=== PATIENT | female | born 1960 | race Caucasian/White ===

== ENCOUNTER 2018-03-23 11:07 | Inpatient (IN) | payer OTHER, BC ==
[2018-03-23] MEDS ORDERED: SODIUM CHLORIDE 1,000 ML IV STA ×2 (12:25→15:52)
[2018-03-23] MEDS ORDERED: ACETAMINOPHEN 1000 MG/100 ML VIAL (NON FORMULARY) IVPB ONE (12:27)
[2018-03-23] MEDS ORDERED: ONDANSETRON 4 MG/2 ML VIAL IVPUSH ONE (12:51)
--- NOTE | 2018-03-23 13:09 | PDOC ---
History of Present Illness - General Chief Complaint: Diarrhea Stated Complaint: PAIN, NAUSEA, HEADACHE Time Seen by Provider: 03/23/18 11:49 History Source: Patient Exam Limitations: No Limitations - History of Present Illness Travel History: No Initial Comments: 03/23/18 13:00 57-year-old female with history of HIV presents the emergency room with complaints of diarrhea since Thursday now associated fever, chills and nausea. Patient states no recent travel or recent illness but states her grandson had coxsackie last week. Patient is followed by Dr. Gomez. GI history states history of cholecystectomy. Patient has no urinary complaints, change in appetite, or recent change in medication. Timing/Duration: reports: getting worse Quality: reports: moderate, cramping Abdominal Pain Onset Location: reports: generalized abdomen Pain Radiation: reports: no radiation Activities at Onset: reports: none Aggravating Factors: improves with: None Alleviating Factors: improves with: None Past History - Travel Traveled outside of the country in the last 30 days: No - Past Medical History Allergies/Adverse Reactions: Allergies Allergy/AdvReac Type Severity Reaction Status Date / Time No Known Allergies Allergy Verified 03/23/18 11:12 Home Medications: Ambulatory Orders Atorvastatin Ca [Lipitor] 10 mg PO HS 03/23/18 Fosamprenavir Calcium [Lexiva] 700 mg PO BID 03/23/18 Lamivudine 300 mg PO DAILY 03/23/18 Mirtazapine 15 mg PO HS 03/23/18 Raltegravir [Isentress -] 400 mg PO BID 03/23/18 Ritonavir [Norvir -] 100 mg PO DAILY 03/23/18 Zolpidem Tartrate 10 mg PO HS 03/23/18 COPD: No Hypercholesterolemia: Yes - Surgical History Abdominal Surgery: Yes Cholecystectomy: Yes (1996) - Immunization History Immunization Up to Date: Yes - Suicide/Smoking/Psychosocial Hx Smoking Status: Yes Smoking History: Current every day smoker Years of Tobacco Use: 30 Number of Cigarettes Smoked Daily: 10 Information on smoking cessation initiated: Yes Hx Alcohol Use: No Drug/Substance Use Hx: No Substance Use Type: None Patient Lives Alone: No Review of Systems - Review of Systems Able to Perform ROS?: No Constitutional: Yes: Symptoms Reported, Chills, Fever, Weakness HEENTM: No: Symptoms Reported Respiratory: No: Symptoms reported Cardiac (ROS): No: Symptoms Reported ABD/GI: Yes: Diarrhea, Nausea, Abdominal cramping Integumentary: No: Symptoms Reported Neurological: No: Symptoms reported Endocrine: No: Symptoms Reported Hematologic/Lymphatic: No: Symptoms Reported *Physical Exam - Vital Signs Last Vital Signs Temp Pulse Resp BP Pulse Ox 100.8 F H 101 H 19 143/76 99 03/23/18 11:10 03/23/18 11:10 03/23/18 11:10 03/23/18 11:10 03/23/18 11:10 - Physical Exam General Appearance: Yes: Nourished, Appropriately Dressed. No: Apparent Distress HEENT: positive: Pharynx Normal. negative: Pale Conjunctivae Neck: positive: Supple Respiratory/Chest: positive: Lungs Clear, Normal Breath Sounds. negative: Respiratory Distress, Accessory Muscle Use Cardiovascular: positive: Regular Rhythm, Tachycardia. negative: Murmur Gastrointestinal/Abdominal: positive: Soft, Tenderness (periumbilical, epigastric right upper quadrant, right flank) Extremity: positive: Normal Capillary Refill. negative: Pedal Edema Integumentary: positive: Normal Color, Warm, Moist Neurologic: positive: Motor Strength 5/5 (ambulatory) Heart Score/ECG Review - ECG Intrepretation Rhythm: Regular Rhythm (Rate 94. Left atrial enlargement. No ST elevation or depression.) ED Treatment Course - LABORATORY CBC & Chemistry Diagram: 03/26/18 06:50 03/26/18 06:50 - RADIOLOGY Radiology Studies Ordered: Category Date Time Status ABDOMEN & PELVIS CT WITH CONTR [CT] Stat CT Scan 03/23/18 12:27 Ordered CHEST X-RAY PORTABLE* [RAD] Stat Radiology 03/23/18 12:25 Taken Medical Decision Making - Medical Decision Making 03/23/18 13:06 Patient with HIV presents with fever diarrhea abdominal pain and nausea. Patient exhibited tenderness to the epigastric right upper quadrant and right flank area. Patient has history of cholecystectomy and denies history of pancreatitis colitis or diverticulitis. Patient ordered for septic workup including abdominal CT. Patient also ordered for IV Tylenol 03/23/18 17:09 Laboratory Tests 03/23/18 03/23/18 03/23/18 13:00 13:00 13:00 WBC 4.7 Hgb 13.6 Hct 40.5 Neutrophils % 50.3 D PT with INR 11.80 INR 1.04 PTT (Actin FS) 30.2 VBG pH 7.40 POC VBG pCO2 45.7 POC VBG pO2 26.1 L Mixed VBG HCO3 27.7 H Sodium Potassium Chloride Carbon Dioxide Anion Gap BUN Creatinine Random Glucose Lactic Acid Calcium Magnesium Total Bilirubin AST ALT Alkaline Phosphatase Troponin I Total Protein Albumin Lipase 03/23/18 03/23/18 13:00 13:00 WBC Hgb Hct Neutrophils % PT with INR INR PTT (Actin FS) VBG pH POC VBG pCO2 POC VBG pO2 Mixed VBG HCO3 Sodium 135 L Potassium 4.2 Chloride 101 Carbon Dioxide 30 Anion Gap 4 L BUN 12 Creatinine 0.9 Random Glucose 84 Lactic Acid 0.9 Calcium 8.3 L Magnesium 2.2 Total Bilirubin 0.3 AST 27 ALT 29 Alkaline Phosphatase 98 Troponin I < 0.02 Total Protein 8.0 Albumin 3.9 Lipase 125 Chest x-ray no shows no evidence of pulmonary disease. 03/23/18 17:10 UA collection pending 03/23/18 18:08 *DC/Admit/Observation/Transfer Diagnosis at time of Disposition: Fever - Discharge Dispostion Condition at time of disposition: Stable - Referrals - Patient Instructions - Post Discharge Activity
[2018-03-23 13:23] LABS: BASO % 0.4 % (0-2.0); EOS % 0.1 % (0-4.5); HEMATOCRIT 40.5 % (32.4-45.2); HEMOGLOBIN 13.6 GM/dL (10.7-15.3); LYMPH % 39.5 % (8-40); MCH 30.3 pg (25.7-33.7); MCHC 33.6 g/dl (32.0-36.0); MEAN CELL VOLUME 90.2 fl (80-96); MEAN PLT VOLUME 8.6 fl (7.5-11.1); MONO % 9.7 % (3.8-10.2); NEUT % 50.3 % (42.8-82.8); PLATELET COUNT 112 K/MM3 (134-434); RBC 4.49 M/mm3 (3.60-5.2); RDW 13.5 % (11.6-15.6); WHITE BLOOD COUNT 4.7 K/mm3 (4.0-10.0)
[2018-03-23] MEDS ORDERED: ACETAMINOPHEN INJECTION 100 ML IVPB ONE (13:32)
[2018-03-23] MEDS ORDERED: ONDANSETRON 4 MG/2 ML VIAL ONE ×2 (13:32→23:24)
[2018-03-23 13:39] LABS: VENOUS PC02 45.7 mmHg (38-52); VENOUS PH 7.4 (7.32-7.42); VENOUS PO2 26.1 mmHg (28-48)
[2018-03-23 13:54] LABS: ALBUMIN 3.9 g/dl (3.4-5.0); ANION GAP 4 (8-16); BILIRUBIN,TOTAL 0.3 mg/dL (0.2-1.0); BLOOD UREA NITROGEN 12 mg/dL (7-18); CALCIUM 8.3 mg/dL (8.5-10.1); CHLORIDE 101 mmol/L (98-107); CO2 30 mmol/L (21-32); CREATININE 0.9 mg/dL (0.55-1.02); GLUCOSE,RANDOM 84 mg/dL (74-106); MAGNESIUM 2.2 mg/dL (1.8-2.4); POTASSIUM 4.2 mmol/L (3.5-5.1); SGOT/AST 27 U/L (15-37); SGPT/ALT 29 U/L (12-78); SODIUM 135 mmol/L (136-145)
[2018-03-23 13:55] LABS: ALK PHOS 98 U/L (45-117)
[2018-03-23 14:10] LABS: INR 1.04 (0.83-1.09); PROTHROMBIN TIME (PATIENT) 11.8 SEC (9.7-13.0)
[2018-03-23 14:13] LABS: ACTIVATED PTT 30.2 SECONDS (25.2-36.5)
[2018-03-23] MEDS ORDERED: KETOROLAC TROMETHAMINE 30 MG/1 ML VIAL IVPUSH ONE (15:52)
[2018-03-23 16:59] LABS: LIPASE 125 U/L (73-393)
[2018-03-23] MEDS ORDERED: KETOROLAC TROMETHAMINE 30 MG/1 ML VIAL ONE (16:59)
[2018-03-23 19:42] LABS: PLATELET ESTIMATE SLT DECREASE
[2018-03-23] MEDS ORDERED: CEFTRIAXONE 1,000 MG in DEXTROSE 5%-WATER - 50 ML IVPB ONE (21:00)
--- NOTE | 2018-03-23 21:18 | PDOC ---
*Physical Exam - Vital Signs Last Vital Signs Temp Pulse Resp BP Pulse Ox 100.8 F H 101 H 19 143/76 99 03/23/18 11:10 03/23/18 11:10 03/23/18 11:10 03/23/18 11:10 03/23/18 11:10 ED Treatment Course - LABORATORY CBC & Chemistry Diagram: 03/23/18 13:00 03/23/18 13:00 - ADDITIONAL ORDERS Additional order review: Laboratory Results 03/23/18 03/23/18 03/23/18 13:00 13:00 13:00 PT with INR INR PTT (Actin FS) VBG pH 7.40 POC VBG pCO2 45.7 POC VBG pO2 26.1 L Mixed VBG HCO3 27.7 H Sodium 135 L Potassium 4.2 Chloride 101 Carbon Dioxide 30 Anion Gap 4 L BUN 12 Creatinine 0.9 Creat Clearance w eGFR > 60 Random Glucose 84 Lactic Acid 0.9 Calcium 8.3 L Magnesium 2.2 Total Bilirubin 0.3 AST 27 ALT 29 Alkaline Phosphatase 98 Troponin I < 0.02 Total Protein 8.0 Albumin 3.9 Lipase 125 03/23/18 13:00 PT with INR 11.80 INR 1.04 PTT (Actin FS) 30.2 VBG pH POC VBG pCO2 POC VBG pO2 Mixed VBG HCO3 Sodium Potassium Chloride Carbon Dioxide Anion Gap BUN Creatinine Creat Clearance w eGFR Random Glucose Lactic Acid Calcium Magnesium Total Bilirubin AST ALT Alkaline Phosphatase Troponin I Total Protein Albumin Lipase 03/23/18 13:00 RBC 4.49 MCV 90.2 MCHC 33.6 RDW 13.5 MPV 8.6 Neutrophils % 50.3 D Lymphocytes % 39.5 D Monocytes % 9.7 Eosinophils % 0.1 D Basophils % 0.4 D - RADIOLOGY Radiology Studies Ordered: Category Date Time Status CHEST PA & LAT [RAD] Stat Radiology 03/23/18 21:01 Ordered - Medications Given in the ED: ED Medications Discontinued Medications Generic Name Dose Route Start Last Admin Trade Name Freq PRN Reason Stop Dose Admin Acetaminophen 1,000 mg 03/23/18 12:27 03/23/18 13:34 Ofirmev Injection - IVPB 03/23/18 12:28 1,000 mg ONCE ONE Administration Sodium Chloride 1,000 mls @ 1,000 mls/hr 03/23/18 12:25 03/23/18 13:34 Normal Saline - IV 03/23/18 13:24 1,000 mls/hr ASDIR STA Administration Sodium Chloride 1,000 mls @ 1,000 mls/hr 03/23/18 15:52 03/23/18 16:40 Normal Saline - IV 03/23/18 16:51 1,000 mls/hr ASDIR STA Administration Ketorolac Tromethamine 30 mg 03/23/18 15:52 03/23/18 16:57 Toradol Injection - IVPUSH 03/23/18 15:53 30 mg ONCE ONE Administration Ondansetron HCl 4 mg 03/23/18 12:51 03/23/18 13:35 Zofran Injection IVPUSH 03/23/18 12:52 4 mg ONCE ONE Administration *DC/Admit/Observation/Transfer Diagnosis at time of Disposition: Fever Qualifiers: Fever type: unspecified Qualified Code(s): R50.9 - Fever, unspecified - Discharge Dispostion Condition at time of disposition: Stable Decision to Admit order: Yes - Referrals Referrals: Nabil Gomez MD [Primary Care Provider] - - Patient Instructions - Post Discharge Activity
[2018-03-23] MEDS ORDERED: CEFTRIAXONE 1 GM/50 ML BAG ONE (21:55)
--- NOTE | 2018-03-23 22:29 | HP ---
CHIEF COMPLAINT: diarrhea, fever, chills, nausea PCP: HISTORY OF PRESENT ILLNESS: 57 yo female with PMH HIV (On ART, CDC 760's in January per pt), MANDO presents to the ED with complaints of diarrhea for 5 days that has been accompanied by subjective fevers and chills with intermittent abdominal pain and sweating. Her last episode of diarrhea was yesterday, and she states she was having diarrhea after eating, which she says was 2-3 times a day. Describes the stool as loose and watery and says that it had an orange-zach tint to it. Denies any bloody or dark stool. Pt also states that she requires 10mg Ambien per night at home for sleep as she has a history of poor sleep. ER course was notable for: (1) Febrile 100.8, HR 101, Lactic acid 0.9, WBC 4.7 (2) 2L NS, 1 gm rocephin, 30 mg Toradol, zofran (3) CT abdomen with no acute colitis, splenomegaly and R middle lobe nodule noted Recent Travel: none PAST MEDICAL HISTORY: HIV (CD4 760s in January) HLD PAST SURGICAL HISTORY: Cholecystectomy 1996 Social History: Smokin/2 ppd for 30 years Alcohol: none Drugs: none Family History: Allergies No Known Allergies Allergy (Verified 03/23/18 11:12) HOME MEDICATIONS: Home Medications Medication Instructions Recorded Atorvastatin Ca [Lipitor] 10 mg PO HS 03/23/18 Fosamprenavir Calcium [Lexiva] 700 mg PO BID 03/23/18 Lamivudine 300 mg PO DAILY 03/23/18 Mirtazapine 15 mg PO HS 03/23/18 Raltegravir [Isentress -] 400 mg PO BID 03/23/18 Ritonavir [Norvir -] 100 mg PO DAILY 03/23/18 Zolpidem Tartrate 10 mg PO HS 03/23/18 REVIEW OF SYSTEMS CONSTITUTIONAL: fever, chills, diaphoresis, Absent: generalized weakness, malaise, loss of appetite, weight change HEENT: Absent: rhinorrhea, nasal congestion, throat pain, throat swelling, difficulty swallowing, mouth swelling, ear pain, eye pain, visual changes CARDIOVASCULAR: Absent: chest pain, syncope, palpitations, irregular heart rate, lightheadedness , peripheral edema RESPIRATORY: Absent: cough, shortness of breath, dyspnea with exertion, orthopnea, wheezing, stridor, hemoptysis GASTROINTESTINAL:abdominal pain, nausea, diarrhea Absent: abdominal distension, vomiting,, constipation, melena, hematochezia GENITOURINARY: Absent: dysuria, frequency, urgency, hesitancy, hematuria, flank pain, genital pain MUSCULOSKELETAL: Absent: myalgia, arthralgia, joint swelling, back pain, neck pain SKIN: Absent: rash, itching, pallor HEMATOLOGIC/IMMUNOLOGIC: Absent: easy bleeding, easy bruising, lymphadenopathy, frequent infections ENDOCRINE: Absent: unexplained weight gain, unexplained weight loss, heat intolerance, cold intolerance NEUROLOGIC: Absent: headache, focal weakness or paresthesias, dizziness, unsteady gait, seizure, mental status changes, bladder or bowel incontinence PSYCHIATRIC: Absent: anxiety, depression, suicidal or homicidal ideation, hallucinations. PHYSICAL EXAMINATION Vital Signs - 24 hr 03/23/18 03/23/18 11:10 18:31 Temperature 100.8 F H 98.8 F Pulse Rate 101 H Pulse Rate [ 85 Left Radial] Respiratory 19 16 Rate Blood Pressure 143/76 Blood Pressure 129/63 [Right Arm] O2 Sat by Pulse 99 100 Oximetry (%) GENERAL: A&O, no acute distress HEAD: Normocephalic, atraumatic. EYES: PERRL, EOMI, no scleral icterus EARS, NOSE, THROAT: oropharynx clear without exudates. Moist mucous membranes. NECK: supple without lymphadenopathy LUNGS: CTA b/l, no crackles or wheezes HEART: Regular rate and rhythm, normal S1 and S2 without murmur, rub or gallop. ABDOMEN: Soft, nontender to palpation, hyperactive bowel sounds MUSCULOSKELETAL: No bony deformities or tenderness. No CVA tenderness. UPPER EXTREMITIES: warm, well-perfused. No cyanosis. No clubbing. No peripheral edema. LOWER EXTREMITIES: warm, well-perfused. No calf tenderness. No peripheral edema. NEUROLOGICAL: Cranial nerves II-XII grossly intact. Normal speech. Normal gait observed PSYCHIATRIC: Cooperative. Good eye contact. Appropriate mood and affect. SKIN: Warm, dry, normal turgor, no rashes or lesions noted Laboratory Results - last 24 hr 03/23/18 03/23/18 03/23/18 13:00 13:00 13:00 WBC 4.7 RBC 4.49 Hgb 13.6 Hct 40.5 MCV 90.2 MCH 30.3 MCHC 33.6 RDW 13.5 Plt Count 112 L D MPV 8.6 Absolute Neuts (auto) 2.4 Neutrophils % 50.3 D Lymphocytes % 39.5 D Monocytes % 9.7 Eosinophils % 0.1 D Basophils % 0.4 D Nucleated RBC % 0 Platelet Estimate Slt decrease PT with INR 11.80 INR 1.04 PTT (Actin FS) 30.2 VBG pH 7.40 POC VBG pCO2 45.7 POC VBG pO2 26.1 L Mixed VBG HCO3 27.7 H Sodium Potassium Chloride Carbon Dioxide Anion Gap BUN Creatinine Creat Clearance w eGFR Random Glucose Lactic Acid Calcium Magnesium Total Bilirubin AST ALT Alkaline Phosphatase Troponin I Total Protein Albumin Lipase 03/23/18 03/23/18 13:00 13:00 WBC RBC Hgb Hct MCV MCH MCHC RDW Plt Count MPV Absolute Neuts (auto) Neutrophils % Lymphocytes % Monocytes % Eosinophils % Basophils % Nucleated RBC % Platelet Estimate PT with INR INR PTT (Actin FS) VBG pH POC VBG pCO2 POC VBG pO2 Mixed VBG HCO3 Sodium 135 L Potassium 4.2 Chloride 101 Carbon Dioxide 30 Anion Gap 4 L BUN 12 Creatinine 0.9 Creat Clearance w eGFR > 60 Random Glucose 84 Lactic Acid 0.9 Calcium 8.3 L Magnesium 2.2 Total Bilirubin 0.3 AST 27 ALT 29 Alkaline Phosphatase 98 Troponin I < 0.02 Total Protein 8.0 Albumin 3.9 Lipase 125 ASSESSMENT/PLAN: 57 yo female with PMH HIV (On ART, CDC 760's in January per pt), HLD placed into observation for gastroenteritis likely viral, ID consult in AM Gastroenteritis -Likely viral gastroenteritis, diarrhea resolving at this point -Unlikely opportunistic due to recent CD4 levels -ED provider discussed with ID who recommended keeping her one night and he will consult in AM -1 gm Rocephin given per ID recommendation -2L NS given in ED, will continue fluid resuscitation HIV -Dx 12 years ago -Follows regularly with Dr. Gomez in clinic -CD4 760's in January -Last therapy change 6 years ago, Continue current regimen -Lexiva, Isentress, Norvir -CD4 and viral load ordered Pulmonary Nodule -nodule noted on CT -Pulm consulted for follow up HLD -Lipitor 20 mg HS Sleep Disorder -will restart home dose Ambien 10 mg PRN for now DVT Prophylaxis -Early ambulation FEN -Fluids: NS @ 100 cc/hr -Electrolytes: no abnormalities, BMP in AM -Nutrition: regular diet Disposition Observation Visit type - Emergency Visit Emergency Visit: Yes ED Registration Date: 03/23/18 Care time: The patient presented to the Emergency Department on the above date and was hospitalized for further evaluation of their emergent condition. - New Patient This patient is new to me today: Yes Date on this admission: 03/24/18 - Critical Care Critical Care patient: No Hospitalist Screening - Colonoscopy Questionnaire Colonoscopy Questionnaire: Colonoscopy Questionnaire - Patient: 50 - 75 years old and never had a screening colonoscopy: Unknown History of colon or rectal polyps, or CA: No History of IBD, Crohn's disease or UC: No History of abdominal radiation therapy as a child: No - Relative: 1 with colon or rectal CA, or polyps at age 60 or younger: No Colon or rectal CA diagnosed at age 45 or younger: No Multiple relatives with colon or rectal CA: No - Outcome: Screening Result: Negative Screen
[2018-03-23] MEDS ORDERED: ZOLPIDEM TARTRATE 5 MG TABLET ONE (23:23)
[2018-03-23] MEDS: ONDANSETRON 4 MG/2 ML VIAL IVPUSH PRN (23:29)
[2018-03-23] MEDS: ZOLPIDEM TARTRATE 5 MG TABLET PO PRN (23:29)
[2018-03-23] MEDS: SODIUM CHLORIDE 1,000 ML IV SCH (23:29)
[2018-03-24 00:48] LABS: URINE APPEARANCE CLEAR; URINE BILIRUBIN NEGATIVE (<2.0 mg/dL); URINE COLOR LTYELLOW; URINE GLUCOSE (UA) NEGATIVE (NEGATIVE); URINE KETONE NEGATIVE (NEGATIVE); URINE LEUK ESTERASE TRACE (NEGATIVE); URINE NITRITE NEGATIVE (NEGATIVE); URINE PROTEIN NEGATIVE (NEGATIVE); URINE UROBILINOGEN NEGATIVE mg/dL (0.2-1.0)
[2018-03-24] MEDS: ACETAMINOPHEN 325 MG TABLET (FP) PO PRN ×4 (01:41→20:14)
[2018-03-24 01:48] LABS: EPI CELLS FEW /HPF (FEW); URINE BACTERIA RARE /hpf (NONE SEEN); URINE MUCUS RARE
[2018-03-24 02:05] VITALS: BMI 30.2
--- NOTE | 2018-03-24 04:58 | PN ---
Teaching Attending Note Name of Resident: Freddy Christensen ATTENDING PHYSICIAN STATEMENT I saw and evaluated the patient. Chart, data, imaging reviewed. I reviewed the resident's note and discussed the case with the resident. I agree with the resident's findings and plan as documented. SUBJECTIVE: 57 yo female with PMH HIV (On ART, CDC 700's and undetected VL in January per pt) c /o diarrhea, nausea, fevers since 03/19. Last BM was 2 days ago. Pt mentioned that grandson had coxsackie virus infection and she had close contact. Patient came to ER as per advice from Dr. Gomez. OBJECTIVE: Last Vital Signs Temp Pulse Resp BP Pulse Ox 99.0 F 91 H 20 154/75 100 03/24/18 05:28 03/24/18 01:59 03/24/18 01:59 03/24/18 01:59 03/24/18 01:27 General - nad, aaox3 heent- at, no thrush cv-s1+S2+rrr chest- clear abdomen- soft, bs+ skin -no rashes seen Abnormal Lab Results 03/23/18 03/23/18 03/23/18 13:00 13:00 13:00 Plt Count 112 L D POC VBG pO2 26.1 L Mixed VBG HCO3 27.7 H Sodium 135 L Anion Gap 4 L Calcium 8.3 L Urine Blood 03/23/18 23:59 Plt Count POC VBG pO2 Mixed VBG HCO3 Sodium Anion Gap Calcium Urine Blood 1+ H CT of abd/pelvis reviewed -right middle lobe 9mm nodule, splenomegally CXR- wnl ASSESSMENT AND PLAN: 57yo woman with likely viral gastroenteritis possibly from her grandson. 9mm right pleural based nodule in a long time smoker warrants further investigations as patient is high risk for malignancies. -observation -IV fluid hydration -zofran prn for nausea -BRAT diet -pulmonary evaluation for possible biopsy of long nodule -c/w ART medications for HIV -CD4, viral load -smoking cessation -heparin sc for dvt ppx
[2018-03-24 08:44] LABS: BASO % 0.3 % (0-2.0); EOS % 1.1 % (0-4.5); HEMATOCRIT 34.2 % (32.4-45.2); HEMOGLOBIN 11.7 GM/dL (10.7-15.3); LYMPH % 48.4 % (8-40); MCH 30.6 pg (25.7-33.7); MCHC 34.1 g/dl (32.0-36.0); MEAN CELL VOLUME 89.8 fl (80-96); MEAN PLT VOLUME 8.6 fl (7.5-11.1); MONO % 9.7 % (3.8-10.2); NEUT % 40.5 % (42.8-82.8); PLATELET COUNT 80 K/MM3 (134-434); RBC 3.81 M/mm3 (3.60-5.2); RDW 13.2 % (11.6-15.6); WHITE BLOOD COUNT 3.8 K/mm3 (4.0-10.0)
[2018-03-24 08:54] LABS: ALBUMIN 3.1 g/dl (3.4-5.0); BLOOD UREA NITROGEN 9 mg/dL (7-18); CALCIUM 7.5 mg/dL (8.5-10.1); CO2 26 mmol/L (21-32); GLUCOSE,RANDOM 89 mg/dL (74-106); MAGNESIUM 1.9 mg/dL (1.8-2.4)
[2018-03-24 08:57] LABS: ALK PHOS 74 U/L (45-117); BILIRUBIN,TOTAL 0.3 mg/dL (0.2-1.0); CREATININE 0.7 mg/dL (0.55-1.02); SGOT/AST 24 U/L (15-37); SGPT/ALT 21 U/L (12-78); TOT PROT 6.3 g/dl (6.4-8.2)
[2018-03-24 09:16] LABS: ANION GAP 6 (8-16); CHLORIDE 104 mmol/L (98-107); SODIUM 136 mmol/L (136-145)
--- NOTE | 2018-03-24 10:30 | CON.PULM ---
Consult Consult Specialty:: PULM/CCM Referred by:: Hospitalist Reason for Consultation:: lung nodule - History of Present Illness Chief Complaint: Abdominal pain History of Present Illness: 57 F, HIV (On WOO, CDC 760's in January per pt), HLD, active smoker (reports that she has been tapering done and almost at the point that she wants to stop). Admitted via the ER due to diarrhea and abdominal discomfort for 5 days. Associated symptoms of fevers and chills. Called for an 8.8 cm RUL pleural based nodule noted in the RML. Patient had CT imaging in 2005 that revealed multiple non-calcified subcentimeter nodules. Noted on that scan is a 7.2 mm nodule in the same location. The nodule was 6.[address] in 2007. No hemoptysis or unexplained weight loss. - History Source History Provided By: Patient Limitations to Obtaining History: No Limitations - Past Medical History Pulmonary: Yes: Bronchitis, Pneumonia. No: O2 Dependent, Previously Intubated, Pulmonary Embolus, Sleep Apnea - Alcohol/Substance Use Hx Alcohol Use: No - Smoking History Smoking history: Current every day smoker Aproximately how many cigarettes per day: 10 Home Medications - Allergies Allergies/Adverse Reactions: Allergies Allergy/AdvReac Type Severity Reaction Status Date / Time No Known Allergies Allergy Verified 03/23/18 11:12 - Home Medications Home Medications: Ambulatory Orders Atorvastatin Ca [Lipitor] 10 mg PO HS 03/23/18 Fosamprenavir Calcium [Lexiva] 700 mg PO BID 03/23/18 Lamivudine 300 mg PO DAILY 03/23/18 Mirtazapine 15 mg PO HS 03/23/18 Raltegravir [Isentress -] 400 mg PO BID 03/23/18 Ritonavir [Norvir -] 100 mg PO DAILY 03/23/18 Zolpidem Tartrate 10 mg PO HS 03/23/18 Review of Systems - Review of Systems Constitutional: reports: Chills, Fever, Weakness. denies: Unintentional Wgt. Loss Eyes: reports: No Symptoms HENT: reports: No Symptoms Neck: reports: No Symptoms Cardiovascular: denies: Chest Pain, Edema, Palpitations, Shortness of Breath Respiratory: reports: Cough, Snoring. denies: Hemoptysis, SOB, SOB on Exertion , Wheezing Gastrointestinal: reports: Abdominal Pain, Diarrhea, Nausea, Rectal Bleeding, Vomiting Blood Genitourinary: reports: No Symptoms Breasts: reports: No Symptoms Reported Musculoskeletal: reports: No Symptoms Integumentary: reports: No Symptoms Neurological: reports: No Symptoms Endocrine: reports: No Symptoms Hematology/Lymphatic: reports: No Symptoms Psychiatric: reports: No Symptoms Physical Exam Vital Sings: Vital Signs Temperature 99.5 F 03/24/18 07:30 Pulse Rate 88 03/24/18 04:00 Respiratory Rate 20 03/24/18 04:00 Blood Pressure 137/76 03/24/18 04:00 O2 Sat by Pulse Oximetry (%) 100 03/24/18 06:17 Constitutional: Yes: No Distress, Obese Eyes: Yes: Conjunctiva Clear, EOM Intact HENT: Yes: Atraumatic, Normocephalic Neck: Yes: Supple, Trachea Midline Cardiovascular: Yes: Regular Rate and Rhythm Respiratory: Yes: Cough, Diminished, Rhonchi. No: Accessory Muscle Use, On Nasal O2, Rales, SOB, SOB on Exertion, Stridor, Tachypnea, Wheezes ...Inspection: Yes: WNL ...Clubbing: No Gastrointestinal: Yes: Normal Bowel Sounds, Soft Renal/: Yes: WNL Musculoskeletal: Yes: WNL Extremities: Yes: WNL Edema: No Peripheral Pulses WNL: Yes Integumentary: Yes: WNL Neurological: Yes: WNL, Alert, Oriented ...Motor Strength: WNL Psychiatric: Yes: WNL, Alert, Oriented Labs: CBC, BMP 03/24/18 07:00 03/24/18 07:00 Imaging - Results Chest X-ray: Report Reviewed, Image Reviewed Cat Scan: Report Reviewed, Image Reviewed Problem List - Problems (1) HIV disease Code(s): B20 - HUMAN IMMUNODEFICIENCY VIRUS [HIV] DISEASE (2) Smoker Code(s): F17.200 - NICOTINE DEPENDENCE, UNSPECIFIED, UNCOMPLICATED (3) Lung nodule, multiple Code(s): R91.8 - OTHER NONSPECIFIC ABNORMAL FINDING OF LUNG FIELD (4) Abdominal pain Code(s): R10.9 - UNSPECIFIED ABDOMINAL PAIN (5) Diarrhea Code(s): R19.7 - DIARRHEA, UNSPECIFIED (6) Fever Code(s): R50.9 - FEVER, UNSPECIFIED Qualifiers: Fever type: unspecified Qualified Code(s): R50.9 - Fever, unspecified Assessment/Plan No smoking was counseled PFTs an outpatient Patient noted to have multiple nodules on CT imaging from 2006. The same lesion is noted in 2006 which measured 7.2. This is most likely pleural scarring. Discussed findings with the patient. Can make further decisions as an outpatient, but conservative management best course given the 12 year relative stability. GI workup ongoing VTE prophylaxis Thank you. Dr Michaels
--- NOTE | 2018-03-24 10:36 | EKG ---
Test Reason : Blood Pressure : / mmHG Vent. Rate : 094 BPM Atrial Rate : 094 BPM P-R Int : 116 ms QRS Dur : 080 ms QT Int : 324 ms P-R-T Axes : 046 031 050 degrees QTc Int : 405 ms NORMAL SINUS RHYTHM POSSIBLE LEFT ATRIAL ENLARGEMENT NONSPECIFIC ST AND T WAVE ABNORMALITY ABNORMAL ECG WHEN COMPARED WITH ECG OF 25-FEB-2011 16:41, VENT. RATE HAS INCREASED BY 32 BPM T WAVE INVERSION NOW EVIDENT IN INFERIOR LEADS T WAVE INVERSION NOW EVIDENT IN LATERAL LEADS Confirmed by RITA SHANNON, RAMIRO ([id number]) on 03/24/2018 10:36:43 AM Referred By: Confirmed By:RAMIRO SALINAS MD
--- NOTE | 2018-03-24 12:00 | PN ---
Progress Note (short form) - Note Progress Note: ID Consult dictated Acute gastroenteritis ? viral syndrome ( fever, leukopenia, thrombocytopenia, lymphocytosis , arthralgias ) HIV/AIDS stable VL undetectable CD4 700 Await c/s Stool studies Continue ceftriaxone
[2018-03-24] MEDS: CEFTRIAXONE 2 GM in DEXTROSE 5%-WATER 100 ML IVPB SCH (12:24)
--- NOTE | 2018-03-24 12:45 | CONS ---
DATE OF CONSULTATION: DATE OF DICTATION: 03/24/2018 HISTORY OF PRESENT ILLNESS: Patient is a 57-year-old female, history of acquired immunodeficiency syndrome, stable on antiretroviral therapy, evaluated for sepsis. The patient was seen in the office 1 week ago at which time she presented for routine followup. She was doing well and had no complaints at that time. On March 19 she began to develop generalized weakness, profound fatigue, subjective fever, chills, body ache and joint pain, especially at the lower extremities. She developed profuse watery nonbloody diarrhea. She presented to the emergency room where she was noted to have a temperature of 100.8. Cultures were obtained. She denies any chest pain, shortness of breath, cough or sputum production. No vomiting. She has had nonbloody bowel movements. She was exposed to an infant with Coxsackievirus. She denies any other ill contacts. No recent travel. No recent antibiotic therapy. PAST MEDICAL HISTORY: Positive for acquired immunodeficiency syndrome. She has an AIDS diagnosis to the fact of having PCP pneumonia years ago and a low T-cell count. She has since been on antiretroviral therapy and has been stable. Her last viral load was undetectable and T-cell count of 700. Past medical history also includes hyperlipidemia. ALLERGIES: No known allergies. MEDICATIONS: Lexiva; Norvir; Isentress; Epivir; Lipitor. PAST SURGICAL HISTORY: Status post cholecystectomy in 1996. SOCIAL HISTORY: Positive for tobacco use. No history of illicit drug use. SYSTEMS REVIEW: Neurologic: No loss of consciousness, seizure activity, focal weakness. Cardiac: Negative chest pain or palpitations. Respiratory: Negative cough or sputum production. Gastrointestinal: As per HPI. Genitourinary: Negative for urinary tract infection. LABORATORY DATA: White count 3.9, 40 neutrophils, 48 lymphocytes, 9 monocytes, hematocrit 34.2, platelet count 112. BUN 9, creatinine 0.7. Urinalysis: White cells 6. Cultures: Pending. Chest X-ray: Negative. PHYSICAL EXAMINATION:General: She is weak appearing, seated in chair. Vital Signs: Temperature 99.5, T-max 100.8, blood pressure 137/76, pulse 88, regular, respirations 20 per minute. HEENT: Sclerae are anicteric. Dry mucous membranes. Cardiac: Heart sounds S1, S2. Lungs: Clear bilaterally. No rhonchi, rales or wheezing. Abdomen: Soft. No tenderness elicited. Extremities: Negative for edema. No rashes noted. IMPRESSION: 1. Probable viral illness. 2. Acute gastroenteritis. 3. Acquired immunodeficiency syndrome, stable. RECOMMENDATIONS: Suspect the patient has an acute viral illness, possible viral gastroenteritis, in light of fever, body ache, leukopenia, leukocytosis, thrombocytopenia. Await culture results. Obtain stool culture and stool ova and parasite. Empiric ceftriaxone for coverage of enteric pathogens. Antiretroviral therapy. Thank you for the kind referral. ORLANDO PINTO M.D. [id number]
--- NOTE | 2018-03-24 14:38 | PN ---
Physical Exam: SUBJECTIVE: Patient is 57 y/o female with a past medical history of HIV and HLD who presents with diarrhea likely to gastroenteritis. She reports she has not had any diarrhea today or yesterday but still has abdominal pain. She reports she feels feverish. No acute events overnight. OBJECTIVE: Vital Signs Period Temp Pulse Resp BP Sys/Lewis Pulse Ox Last 24 Hr 98.8 F-100.4 F 85-95 16-20 129-154/63-76 100-100 GENERAL: The patient is awake, alert, and fully oriented, in no acute distress. LUNGS: rhonchi left lung, no acessory muscle use HEART: Regular rate and rhythm, S1, S2 ABDOMEN: Soft, nontender, nondistended, normoactive bowel sounds EXTREMITIES: 2+ pulses, warm, well-perfused, no edema. PSYCH: Normal mood, normal affect. SKIN: Warm, dry, normal turgor, no rashes or lesions noted Laboratory Results - last 24 hr 03/23/18 03/23/18 03/23/18 13:00 13:00 13:00 WBC RBC Hgb Hct MCV MCH MCHC RDW Plt Count MPV Absolute Neuts (auto) Total Counted Neutrophils % Neutrophils % (Manual) Lymphocytes % Lymphocytes % (Manual) Monocytes % Monocytes % (Manual) Eosinophils % Eosinophils % (Manual) Basophils % Nucleated RBC % Platelet Estimate Slt decrease PT with INR 11.80 INR 1.04 PTT (Actin FS) 30.2 Sodium 135 L Potassium 4.2 Chloride 101 Carbon Dioxide 30 Anion Gap 4 L BUN 12 Creatinine 0.9 Creat Clearance w eGFR > 60 Random Glucose 84 Calcium 8.3 L Phosphorus Magnesium 2.2 Total Bilirubin 0.3 AST 27 ALT 29 Alkaline Phosphatase 98 Troponin I < 0.02 Total Protein 8.0 Albumin 3.9 Lipase 125 Urine Color Urine Appearance Urine pH Ur Specific [place] Urine Protein Urine Glucose (UA) Urine Ketones Urine Blood Urine Nitrite Urine Bilirubin Urine Urobilinogen Ur Leukocyte Esterase Urine WBC (Auto) Urine RBC (Auto) Ur Epithelial Cells Urine Bacteria Urine Mucus 03/23/18 03/24/18 03/24/18 23:59 07:00 07:00 WBC 3.8 L RBC 3.81 Hgb 11.7 Hct 34.2 D MCV 89.8 MCH 30.6 MCHC 34.1 RDW 13.2 Plt Count 80 L D MPV 8.6 Absolute Neuts (auto) 1.5 Total Counted 100 Neutrophils % 40.5 L Neutrophils % (Manual) 47.0 Lymphocytes % 48.4 H D Lymphocytes % (Manual) 44.0 H Monocytes % 9.7 Monocytes % (Manual) 7 Eosinophils % 1.1 D Eosinophils % (Manual) 1.0 Basophils % 0.3 Nucleated RBC % 0 Platelet Estimate PT with INR INR PTT (Actin FS) Sodium 136 Potassium 4.0 Chloride 104 Carbon Dioxide 26 Anion Gap 6 L BUN 9 Creatinine 0.7 Creat Clearance w eGFR > 60 Random Glucose 89 Calcium 7.5 L Phosphorus 4.0 Magnesium 1.9 Total Bilirubin 0.3 AST 24 ALT 21 Alkaline Phosphatase 74 D Troponin I Total Protein 6.3 L Albumin 3.1 L Lipase Urine Color Ltyellow Urine Appearance Clear Urine pH 5.0 Ur Specific [place] 1.033 Urine Protein Negative Urine Glucose (UA) Negative Urine Ketones Negative Urine Blood 1+ H Urine Nitrite Negative Urine Bilirubin Negative Urine Urobilinogen Negative Ur Leukocyte Esterase Trace Urine WBC (Auto) 6 Urine RBC (Auto) 2 Ur Epithelial Cells Few Urine Bacteria Rare Urine Mucus Rare Active Medications Generic Name Dose Route Start Last Admin Trade Name Freq PRN Reason Stop Dose Admin Acetaminophen 650 mg 03/24/18 01:22 03/24/18 14:15 Tylenol - PO 650 mg Q6H PRN Administration PAIN OR FEVER Sodium Chloride 1,000 mls @ 100 mls/hr 03/23/18 22:15 03/23/18 23:29 Normal Saline - IV 100 mls/hr ASDIR KEVIN Administration Ceftriaxone Sodium 2 gm/ 100 mls @ 200 mls/hr 03/24/18 11:45 03/24/18 12:24 Dextrose IVPB 200 mls/hr DAILY KEVIN Administration Protocol Ondansetron HCl 4 mg 03/23/18 22:10 03/23/18 23:29 Zofran Injection IVPUSH 4 mg Q6H PRN Administration NAUSEA Zolpidem Tartrate 10 mg 03/23/18 22:10 03/23/18 23:29 Ambien - PO 10 mg HS PRN Administration INSOMNIA ASSESSMENT/PLAN: Patient is 57 y/o female with a past medical history of HIV and HLD who presents with diarrhea likely to gastroenteritis. #diarrhea 2/2 to possible gastroenteritis - NS @ 100 - Ceftriaxone 2 gm - acetaminophen 650 prn pain - f/u Dr. pastrana; fever, leukopenia, thrombocytopenia - f/u stool cultures #Pulmonary nodule - 8.8 cm RUL pleural based nodule - Pulm consult Dr. Michaels; same lesion in 2005, most likely scarring, conservative management given 12 year stability #HIV - VL undeteactable CD4 700 - Ritonavir - Raltegravir - Lamivudine - Fosamprenavir #HLD - Atorvastatin #Insomnia - Zolpidem 10 mg po hs - mirtazapine 15 mg po hs Dispo: f/u ID Visit type - Emergency Visit Emergency Visit: No - New Patient This patient is new to me today: Yes Date on this admission: 03/24/18 - Critical Care Critical Care patient: No
--- NOTE | 2018-03-24 16:08 | PN ---
Teaching Attending Note Name of Resident: Judit Flowers ATTENDING PHYSICIAN STATEMENT I saw and evaluated the patient. I reviewed the resident's note and discussed the case with the resident. I agree with the resident's findings and plan as documented. SUBJECTIVE: Patient reports diarrhea has improved. She feels like she is having fevers. OBJECTIVE: Vital Signs Period Temp Pulse Resp BP Sys/Lewis Pulse Ox Last 24 Hr 98.8 F-100.4 F 85-95 16-20 129-154/63-76 100-100 HEART: S1S2, RRR LUNGS: Few rhonchi on right ABDOMEN: Soft, non-tender, non-distended, normal BS EXTREMITIES: No edema Laboratory Results - last 24 hr 03/23/18 03/23/18 03/23/18 13:00 13:00 23:59 WBC RBC Hgb Hct MCV MCH MCHC RDW Plt Count MPV Absolute Neuts (auto) Total Counted Neutrophils % Neutrophils % (Manual) Lymphocytes % Lymphocytes % (Manual) Monocytes % Monocytes % (Manual) Eosinophils % Eosinophils % (Manual) Basophils % Nucleated RBC % Platelet Estimate Slt decrease Sodium 135 L Potassium 4.2 Chloride 101 Carbon Dioxide 30 Anion Gap 4 L BUN 12 Creatinine 0.9 Creat Clearance w eGFR > 60 Random Glucose 84 Calcium 8.3 L Phosphorus Magnesium 2.2 Total Bilirubin 0.3 AST 27 ALT 29 Alkaline Phosphatase 98 Troponin I < 0.02 Total Protein 8.0 Albumin 3.9 Lipase 125 Urine Color Ltyellow Urine Appearance Clear Urine pH 5.0 Ur Specific [place] 1.033 Urine Protein Negative Urine Glucose (UA) Negative Urine Ketones Negative Urine Blood 1+ H Urine Nitrite Negative Urine Bilirubin Negative Urine Urobilinogen Negative Ur Leukocyte Esterase Trace Urine WBC (Auto) 6 Urine RBC (Auto) 2 Ur Epithelial Cells Few Urine Bacteria Rare Urine Mucus Rare 03/24/18 03/24/18 07:00 07:00 WBC 3.8 L RBC 3.81 Hgb 11.7 Hct 34.2 D MCV 89.8 MCH 30.6 MCHC 34.1 RDW 13.2 Plt Count 80 L D MPV 8.6 Absolute Neuts (auto) 1.5 Total Counted 100 Neutrophils % 40.5 L Neutrophils % (Manual) 47.0 Lymphocytes % 48.4 H D Lymphocytes % (Manual) 44.0 H Monocytes % 9.7 Monocytes % (Manual) 7 Eosinophils % 1.1 D Eosinophils % (Manual) 1.0 Basophils % 0.3 Nucleated RBC % 0 Platelet Estimate Sodium 136 Potassium 4.0 Chloride 104 Carbon Dioxide 26 Anion Gap 6 L BUN 9 Creatinine 0.7 Creat Clearance w eGFR > 60 Random Glucose 89 Calcium 7.5 L Phosphorus 4.0 Magnesium 1.9 Total Bilirubin 0.3 AST 24 ALT 21 Alkaline Phosphatase 74 D Troponin I Total Protein 6.3 L Albumin 3.1 L Lipase Urine Color Urine Appearance Urine pH Ur Specific [place] Urine Protein Urine Glucose (UA) Urine Ketones Urine Blood Urine Nitrite Urine Bilirubin Urine Urobilinogen Ur Leukocyte Esterase Urine WBC (Auto) Urine RBC (Auto) Ur Epithelial Cells Urine Bacteria Urine Mucus Current Medications Generic Name Dose Route Start Last Admin Trade Name Freq PRN Reason Stop Dose Admin Acetaminophen 650 mg 03/24/18 01:22 03/24/18 14:15 Tylenol - PO 650 mg Q6H PRN Administration PAIN OR FEVER Sodium Chloride 1,000 mls @ 100 mls/hr 03/23/18 22:15 03/23/18 23:29 Normal Saline - IV 100 mls/hr ASDIR KEVIN Administration Ceftriaxone Sodium 2 gm/ 100 mls @ 200 mls/hr 03/24/18 11:45 03/24/18 12:24 Dextrose IVPB 200 mls/hr DAILY KEVIN Administration Protocol Ondansetron HCl 4 mg 03/23/18 22:10 03/23/18 23:29 Zofran Injection IVPUSH 4 mg Q6H PRN Administration NAUSEA Zolpidem Tartrate 10 mg 03/23/18 22:10 03/23/18 23:29 Ambien - PO 10 mg HS PRN Administration INSOMNIA ASSESSMENT AND PLAN: This is a 57 year old woman with a history of HIV, hyperlipidemia who presented to the ED with fever, chills, nausea and diarrhea. 1. Acute gastroenteritis, possible pneumonia, viral syndrome - Continue IV fluid, Rocephin empirically 2. HIV - Recent undetectable viral load, CD4 700 - Continue anti-retroviral therapy 3. Hyperlipidemia 4. RML lung nodule, 9 mm - Pulmonary consult appreciated - Outpatient follow up
[2018-03-24] MEDS: SODIUM CHLORIDE 1,000 ML IV SCH ×2 (17:51→22:00)
[2018-03-25] MEDS: ACETAMINOPHEN 325 MG TABLET (FP) PO PRN ×4 (02:25→21:13)
[2018-03-25] MEDS: SODIUM CHLORIDE 1,000 ML IV SCH ×2 (05:48→15:25)
[2018-03-25] MEDS ORDERED: POLYETHYLENE GLYCOL 3350 119 GM BTL PO ONE (06:38)
[2018-03-25 07:14] LABS: HEMATOCRIT 34.9 % (32.4-45.2); HEMOGLOBIN 11.9 GM/dL (10.7-15.3); MCH 30.4 pg (25.7-33.7); MCHC 34.2 g/dl (32.0-36.0); MEAN CELL VOLUME 88.9 fl (80-96); MEAN PLT VOLUME 8.8 fl (7.5-11.1); PLATELET COUNT 75 K/MM3 (134-434); RBC 3.92 M/mm3 (3.60-5.2); RDW 13.4 % (11.6-15.6); WHITE BLOOD COUNT 3.9 K/mm3 (4.0-10.0)
[2018-03-25 09:36] LABS: CHLORIDE 104 mmol/L (98-107); POTASSIUM 3.9 mmol/L (3.5-5.1); SODIUM 140 mmol/L (136-145)
--- NOTE | 2018-03-25 09:57 | PN ---
Progress Note (short form) - Note Progress Note: Today breathing feels a bit labored. No CP. Slight cough. GI symptoms persist. Intake & Output 03/22/18 03/23/18 03/24/18 03/25/18 23:59 23:59 23:59 23:59 Intake Total 2450 1200 Balance 2450 1200 Weight 180 lb 176 lb 5 oz 179 lb 4 oz Last Vital Signs Temp Pulse Resp BP Pulse Ox 101.0 F H 88 20 145/72 100 03/25/18 06:00 03/25/18 06:00 03/25/18 06:00 03/25/18 06:00 03/24/18 06:17 Active Medications Acetaminophen (Tylenol -) 650 mg PO Q6H PRN PRN Reason: PAIN OR FEVER Last Admin: 03/25/18 05:47 Dose: 650 mg Sodium Chloride (Normal Saline -) 1,000 mls @ 100 mls/hr IV ASDIR KEVIN Last Admin: 03/25/18 05:48 Dose: 100 mls/hr Ceftriaxone Sodium 2 gm/ (Dextrose) 100 mls @ 200 mls/hr IVPB DAILY KEVIN; Protocol Last Admin: 03/24/18 12:24 Dose: 200 mls/hr Ondansetron HCl (Zofran Injection) 4 mg IVPUSH Q6H PRN PRN Reason: NAUSEA Last Admin: 03/23/18 23:29 Dose: 4 mg Zolpidem Tartrate (Ambien -) 10 mg PO HS PRN PRN Reason: INSOMNIA Last Admin: 03/23/18 23:29 Dose: 10 mg Constitutional: Yes: No Distress, Obese Eyes: Yes: Conjunctiva Clear, EOM Intact HENT: Yes: Atraumatic, Normocephalic Neck: Yes: Supple, Trachea Midline Cardiovascular: Yes: Regular Rate and Rhythm Respiratory: Yes: Cough, Diminished, Rhonchi. No: Accessory Muscle Use, Rales, SOB, SOB on Exertion, Stridor, Tachypnea, Wheezes ...Inspection: Yes: WNL ...Clubbing: No Gastrointestinal: Yes: Normal Bowel Sounds, Soft Renal/: Yes: WNL Musculoskeletal: Yes: WNL Extremities: Yes: WNL Edema: No Peripheral Pulses WNL: Yes Integumentary: Yes: WNL Neurological: Yes: WNL, Alert, Oriented ...Motor Strength: WNL Psychiatric: Yes: WNL, Alert, Oriented Labs: Laboratory Results - last 24 hr 03/24/18 03/25/18 03/25/18 07:00 06:35 06:35 WBC 3.9 L RBC 3.92 Hgb 11.9 Hct 34.9 MCV 88.9 MCH 30.4 MCHC 34.2 RDW 13.4 Plt Count 80 L D 75 L MPV 8.6 8.8 Total Counted 100 Neutrophils % (Manual) 47.0 Lymphocytes % (Manual) 44.0 H Monocytes % (Manual) 7 Eosinophils % (Manual) 1.0 Sodium 140 Potassium 3.9 Chloride 104 Problem List - Problems (1) HIV disease Code(s): B20 - HUMAN IMMUNODEFICIENCY VIRUS [HIV] DISEASE (2) Smoker Code(s): F17.200 - NICOTINE DEPENDENCE, UNSPECIFIED, UNCOMPLICATED (3) Lung nodule, multiple Code(s): R91.8 - OTHER NONSPECIFIC ABNORMAL FINDING OF LUNG FIELD (4) Abdominal pain Code(s): R10.9 - UNSPECIFIED ABDOMINAL PAIN (5) Diarrhea Code(s): R19.7 - DIARRHEA, UNSPECIFIED (6) Fever Code(s): R50.9 - FEVER, UNSPECIFIED Qualifiers: Fever type: unspecified Qualified Code(s): R50.9 - Fever, unspecified Assessment/Plan No smoking was again counseled PFTs an outpatient Patient noted to have multiple nodules on CT imaging from 2005. The same lesion is noted in 2006 which measured 7.2. This is most likely pleural scarring. Discussed findings with the patient. Can make further decisions as an outpatient, but conservative management best course given the 12 year relative stability. GI workup ongoing VTE prophylaxis Add Nasal O2 BD TX Standing and PRN Dr Michaels Problem List - Problems (1) HIV disease Code(s): B20 - HUMAN IMMUNODEFICIENCY VIRUS [HIV] DISEASE (2) Smoker Code(s): F17.200 - NICOTINE DEPENDENCE, UNSPECIFIED, UNCOMPLICATED (3) Lung nodule, multiple Code(s): R91.8 - OTHER NONSPECIFIC ABNORMAL FINDING OF LUNG FIELD (4) Abdominal pain Code(s): R10.9 - UNSPECIFIED ABDOMINAL PAIN (5) Diarrhea Code(s): R19.7 - DIARRHEA, UNSPECIFIED (6) Fever Code(s): R50.9 - FEVER, UNSPECIFIED Qualifiers: Fever type: unspecified Qualified Code(s): R50.9 - Fever, unspecified
[2018-03-25 10:00] LABS: ANION GAP 11 (8-16); BLOOD UREA NITROGEN 7 mg/dL (7-18); CALCIUM 7.6 mg/dL (8.5-10.1); CO2 25 mmol/L (21-32); CREATININE 0.7 mg/dL (0.55-1.02); GLUCOSE,RANDOM 84 mg/dL (74-106)
[2018-03-25] MEDS ORDERED: ALBUTEROL SO4 0.083% IH SOL 2.5 MG/3 ML VIAL.NEB. NEB PRN (10:00)
[2018-03-25] MEDS ORDERED: DEXTROSE 5%-WATER 100 ML IVPB ONE (10:29)
[2018-03-25] MEDS: CEFTRIAXONE 2 GM in DEXTROSE 5%-WATER 100 ML IVPB SCH (10:32)
--- NOTE | 2018-03-25 11:39 | PN ---
Physical Exam: SUBJECTIVE: Patient is 57 y/o female with a past medical history of HIV and HLD who presents with diarrhea likely to gastroenteritis. She reports she has not had any diarrhea. Patient had a TMAX of 102.8 overnight, given tylenol but fever persisted. OBJECTIVE: Vital Signs Period Temp Pulse Resp BP Sys/Lewis Pulse Ox Last 24 Hr 100.7 F-102.8 F 87-88 20-20 145-149/72-84 GENERAL: The patient is awake, alert, and fully oriented, in no acute distress. LUNGS: rhonchi left lung, no acessory muscle use HEART: Regular rate and rhythm, S1, S2 ABDOMEN: Soft, nontender, nondistended, normoactive bowel sounds EXTREMITIES: 2+ pulses, warm, well-perfused, no edema. PSYCH: Normal mood, normal affect. SKIN: Warm, dry, normal turgor, no rashes or lesions noted Laboratory Results - last 24 hr 03/24/18 03/25/18 03/25/18 07:00 06:35 06:35 WBC 3.9 L RBC 3.92 Hgb 11.9 Hct 34.9 MCV 88.9 MCH 30.4 MCHC 34.2 RDW 13.4 Plt Count 80 L D 75 L MPV 8.6 8.8 Total Counted 100 Neutrophils % (Manual) 47.0 Lymphocytes % (Manual) 44.0 H Monocytes % (Manual) 7 Eosinophils % (Manual) 1.0 Sodium 140 Potassium 3.9 Chloride 104 Carbon Dioxide 25 Anion Gap 11 BUN 7 Creatinine 0.7 Creat Clearance w eGFR > 60 Random Glucose 84 Calcium 7.6 L Active Medications Generic Name Dose Route Start Last Admin Trade Name Wolfq PRN Reason Stop Dose Admin Acetaminophen 650 mg 03/24/18 01:22 03/25/18 05:47 Tylenol - PO 650 mg Q6H PRN Administration PAIN OR FEVER Albuterol Sulfate 1 amp 03/25/18 10:00 Ventolin 0.083% Nebulizer Soln - NEB Q4H PRN SHORT OF BREATH/WHEEZING Arformoterol Tartrate 1 amp 03/25/18 20:00 Brovana (Restricted To Pulmonology/Resp) - NEB RBID KEVIN Sodium Chloride 1,000 mls @ 100 mls/hr 03/23/18 22:15 03/25/18 05:48 Normal Saline - IV 100 mls/hr ASDIR KEVIN Administration Ceftriaxone Sodium 2 gm/ 100 mls @ 200 mls/hr 03/24/18 11:45 03/25/18 10:32 Dextrose IVPB 200 mls/hr DAILY KEVIN Administration Protocol Ondansetron HCl 4 mg 03/23/18 22:10 03/23/18 23:29 Zofran Injection IVPUSH 4 mg Q6H PRN Administration NAUSEA Zolpidem Tartrate 10 mg 03/23/18 22:10 03/23/18 23:29 Ambien - PO 10 mg HS PRN Administration INSOMNIA ASSESSMENT/PLAN: Patient is 57 y/o female with a past medical history of HIV and HLD who presents with diarrhea likely to gastroenteritis. #diarrhea 2/2 to possible gastroenteritis - NS @ 100 - Ceftriaxone 2 gm (day 2) - Doxycycline 100 mg (day 1) - acetaminophen 650 prn pain - f/u Dr. pastrana; fever, leukopenia, thrombocytopenia, broaden antibiotics likely to viral syndrome - f/u stool cultures - febrile over night - bcx: no organsim pending, f/u repeat bcx 03/25 #Pulmonary nodule - 8.8 cm RUL pleural based nodule - Pulm consult Dr. Michaels; same lesion in 2005, most likely scarring, conservative management given 12 year stability - NC 2 L #HIV - VL undeteactable CD4 700 - Ritonavir - Raltegravir - Lamivudine - Fosamprenavir #HLD - Atorvastatin #Insomnia - Zolpidem 10 mg po hs - mirtazapine 15 mg po hs Dispo: f/u ID Visit type - Emergency Visit Emergency Visit: No - New Patient This patient is new to me today: No - Critical Care Critical Care patient: No
[2018-03-25] MEDS: FOSAMPRENAVIR CALCIUM 700 MG TABLET PO SCH (15:26)
[2018-03-25] MEDS: RITONAVIR 100 MG TABLET PO SCH (15:27)
--- NOTE | 2018-03-25 15:27 | PN ---
Progress Note, Physician History of Present Illness: Recurrent fever 102+ C/O headache, back pain , B/L UE+LE pain No c/o rigors No chest pain/ dyspnea/ cough No dysuria + Nausea - Current Medication List Current Medications: Active Medications Acetaminophen (Tylenol -) 650 mg PO Q6H PRN PRN Reason: PAIN OR FEVER Last Admin: 03/25/18 14:26 Dose: 650 mg Albuterol Sulfate (Ventolin 0.083% Nebulizer Soln -) 1 amp NEB Q4H PRN PRN Reason: SHORT OF BREATH/WHEEZING Arformoterol Tartrate (Brovana (Restricted To Pulmonology/Resp) -) 1 amp NEB RBID KEVIN Fosamprenavir Calcium (Lexiva -) 1,400 mg PO DAILY [facility] Sodium Chloride (Normal Saline -) 1,000 mls @ 100 mls/hr IV ASDIR KEVIN Last Admin: 03/25/18 05:48 Dose: 100 mls/hr Ceftriaxone Sodium 2 gm/ (Dextrose) 100 mls @ 200 mls/hr IVPB DAILY [facility]; Protocol Last Admin: 03/25/18 10:32 Dose: 200 mls/hr Doxycycline Hyclate 100 mg/ (Dextrose) 100 mls @ 50 mls/hr IVPB BID KEVIN Lamivudine (Epivir -) 300 mg PO DAILY [facility] Ondansetron HCl (Zofran Injection) 4 mg IVPUSH Q6H PRN PRN Reason: NAUSEA Last Admin: 03/23/18 23:29 Dose: 4 mg Raltegravir (Isentress -) 400 mg PO BID KEVIN Ritonavir (Norvir -) 100 mg PO DAILY [facility] Zolpidem Tartrate (Ambien -) 10 mg PO HS PRN PRN Reason: INSOMNIA Last Admin: 03/23/18 23:29 Dose: 10 mg - Objective Vital Signs: Vital Signs Temperature 100.2 F H 03/25/18 08:00 Pulse Rate 93 H 03/25/18 08:00 Respiratory Rate 20 03/25/18 08:00 Blood Pressure 146/93 03/25/18 08:00 O2 Sat by Pulse Oximetry (%) 96 03/25/18 08:00 Constitutional: Yes: No Distress Eyes: Yes: Conjunctiva Clear Cardiovascular: Yes: Regular Rate and Rhythm, S1, S2 Respiratory: Yes: CTA Bilaterally Gastrointestinal: Yes: Normal Bowel Sounds, Soft. No: Tenderness Edema: No Integumentary: Yes: Other (? insect bites R LE) Labs: CBC, BMP 03/25/18 06:35 03/25/18 06:35 INR, PTT INR 1.04 (0.83-1.09) 03/23/18 13:00 Assessment/Plan Fever/ leukopenia/ thrombocytopenia ? viral illness ? tick-related + exposure to with coxsackie virus] + tick exposure HIV/AIDS stable Repeat BC obtained Obtain tick serology Add empiric doxycycline Continue ceftriaxone ART Analgesics
--- NOTE | 2018-03-25 16:06 | PN ---
Teaching Attending Note Name of Resident: Judit Flowers ATTENDING PHYSICIAN STATEMENT I saw and evaluated the patient. I reviewed the resident's note and discussed the case with the resident. I agree with the resident's findings and plan as documented. SUBJECTIVE: Patient is feeling SOB and was placed on oxygen 2L. Had temp 102.8 overnight. OBJECTIVE: Vital Signs Period Temp Pulse Resp BP Sys/Lewis Pulse Ox Last 24 Hr 100.2 F-102.8 F 87-93 20-20 132-149/72-109 96 HEART: S1S2, RRR LUNGS: Bilateral rhonchi ABDOMEN: Obese, soft, non-tender, non-distended, normal BS EXTREMITIES: No edema Laboratory Results - last 24 hr 03/25/18 03/25/18 06:35 06:35 WBC 3.9 L RBC 3.92 Hgb 11.9 Hct 34.9 MCV 88.9 MCH 30.4 MCHC 34.2 RDW 13.4 Plt Count 75 L MPV 8.8 Sodium 140 Potassium 3.9 Chloride 104 Carbon Dioxide 25 Anion Gap 11 BUN 7 Creatinine 0.7 Creat Clearance w eGFR > 60 Random Glucose 84 Calcium 7.6 L Current Medications Generic Name Dose Route Start Last Admin Trade Name Freq PRN Reason Stop Dose Admin Acetaminophen 650 mg 03/24/18 01:22 03/25/18 14:26 Tylenol - PO 650 mg Q6H PRN Administration FEVER Acetaminophen 325 mg 03/25/18 15:30 Tylenol - PO Q6H PRN PAIN 4-6 Albuterol Sulfate 1 amp 03/25/18 10:00 Ventolin 0.083% Nebulizer Soln - NEB Q4H PRN SHORT OF BREATH/WHEEZING Arformoterol Tartrate 1 amp 03/25/18 20:00 Brovana (Restricted To Pulmonology/Resp) - NEB RBID KEVIN Fosamprenavir Calcium 1,400 mg 03/25/18 15:00 03/25/18 15:26 Lexiva - PO 1,400 mg DAILY KEVIN Administration Heparin Sodium (Porcine) 5,000 unit 03/25/18 22:00 Heparin - SQ TID KEVIN Sodium Chloride 1,000 mls @ 100 mls/hr 03/23/18 22:15 03/25/18 15:25 Normal Saline - IV 100 mls/hr ASDIR KEVIN Administration Ceftriaxone Sodium 2 gm/ 100 mls @ 200 mls/hr 03/24/18 11:45 03/25/18 10:32 Dextrose IVPB 200 mls/hr DAILY KEVIN Administration Protocol Doxycycline Hyclate 100 mg/ 100 mls @ 50 mls/hr 03/25/18 22:00 Dextrose IVPB BID KEVIN Lamivudine 300 mg 03/25/18 15:00 03/25/18 15:25 Epivir - PO 300 mg DAILY KEVIN Administration Ondansetron HCl 4 mg 03/23/18 22:10 03/23/18 23:29 Zofran Injection IVPUSH 4 mg Q6H PRN Administration NAUSEA Oxycodone HCl 5 mg 03/25/18 15:30 Roxicodone - PO Q6H PRN PAIN 4-6 Raltegravir 400 mg 03/25/18 22:00 Isentress - PO BID KEVIN Ritonavir 100 mg 03/25/18 15:00 03/25/18 15:27 Norvir - PO 100 mg DAILY KEVIN Administration Zolpidem Tartrate 10 mg 03/23/18 22:10 03/23/18 23:29 Ambien - PO 10 mg HS PRN Administration INSOMNIA ASSESSMENT AND PLAN: This is a 57 year old woman with a history of HIV, hyperlipidemia who presented to the ED with fever, chills, nausea and diarrhea. 1. Acute gastroenteritis, possible pneumonia, possible viral syndrome, possible tick-borne illness - Patient febrile - Diarrhea improved - Continue IV fluid, Rocephin empirically - Doxycycline started empirically - Oxygen to maintain saturation > 90% - Brovana, albuterol nebs as needed added - Blood cultures negative after 48 hrs - Repeat blood cultures done today - Stool culture pending 2. HIV - Recent undetectable viral load, CD4 700 - Continue Norvir, Isentress, Epivir, Lexiva 3. Hyperlipidemia 4. RML lung nodule, 9 mm - Outpatient follow up 5. Obesity with BMI 30.8
[2018-03-25] MEDS: oxyCODONE HCL 5 MG TABLET PO PRN (16:26)
[2018-03-25] MEDS: ARFORMOTEROL TARTRATE 15 MCG/2 ML VIAL NEB SCH (20:08)
[2018-03-25] MEDS ORDERED: PT OWN MED DRAWER 7, Y5N ONE (21:06)
[2018-03-25] MEDS: HEPARIN NA (PORCINE) 5,000 UNITS/ML 1ML VIAL SQ SCH (21:11)
[2018-03-25] MEDS: RALTEGRAVIR POTASSIUM 400 MG TAB PO SCH (21:11)
[2018-03-25] MEDS: ZOLPIDEM TARTRATE 5 MG TABLET PO PRN (21:16)
[2018-03-25] MEDS: DOXYCYCLINE INJECTION 100 MG in DEXTROSE 5%-WATER 100 ML IVPB SCH (21:17)
[2018-03-26] MEDS: SODIUM CHLORIDE 1,000 ML IV SCH ×2 (04:30→23:00)
[2018-03-26] MEDS: HEPARIN NA (PORCINE) 5,000 UNITS/ML 1ML VIAL SQ SCH ×3 (05:46→21:28)
[2018-03-26] MEDS: ACETAMINOPHEN 325 MG TABLET (FP) PO PRN ×2 (06:23→21:37)
[2018-03-26 08:25] LABS: HEMATOCRIT 34.9 % (32.4-45.2); HEMOGLOBIN 12.2 GM/dL (10.7-15.3); MEAN CELL VOLUME 88.7 fl (80-96); MEAN PLT VOLUME 8.6 fl (7.5-11.1); PLATELET COUNT 81 K/MM3 (134-434); RBC 3.93 M/mm3 (3.60-5.2); RDW 12.8 % (11.6-15.6); WHITE BLOOD COUNT 3.7 K/mm3 (4.0-10.0)
[2018-03-26] MEDS: ARFORMOTEROL TARTRATE 15 MCG/2 ML VIAL NEB SCH ×2 (08:34→20:35)
[2018-03-26 08:41] LABS: ANION GAP 10 (8-16); BLOOD UREA NITROGEN 7 mg/dL (7-18); CALCIUM 7.7 mg/dL (8.5-10.1); CHLORIDE 102 mmol/L (98-107); CO2 25 mmol/L (21-32); CREATININE 0.6 mg/dL (0.55-1.02); GLUCOSE,RANDOM 86 mg/dL (74-106); POTASSIUM 3.6 mmol/L (3.5-5.1); SODIUM 137 mmol/L (136-145)
[2018-03-26] MEDS ORDERED: DEXTROSE 5%-WATER 100 ML IVPB ONE (09:48)
[2018-03-26] MEDS ORDERED: PT OWN MED DRAWER 7, Y5N ONE ×2 (09:48→21:18)
[2018-03-26] MEDS: lamiVUDine 150 MG TABLET PO SCH (09:56)
[2018-03-26] MEDS: RITONAVIR 100 MG TABLET PO SCH (09:56)
[2018-03-26] MEDS: RALTEGRAVIR POTASSIUM 400 MG TAB PO SCH ×2 (09:56→21:29)
[2018-03-26] MEDS: FOSAMPRENAVIR CALCIUM 700 MG TABLET PO SCH (09:57)
[2018-03-26] MEDS: CEFTRIAXONE 2 GM in DEXTROSE 5%-WATER 100 ML IVPB SCH (09:57)
--- NOTE | 2018-03-26 10:04 | PN ---
Progress Note (short form) - Note Progress Note: Breathing feels better today. Less SOB. No CP. Slight cough. GI symptoms persist. Intake & Output 03/23/18 03/24/18 03/25/18 03/26/18 23:59 23:59 23:59 23:59 Intake Total 2450 2650 1200 Balance 2450 2650 1200 Weight 180 lb 176 lb 5 oz 179 lb 4 oz 174 lb 4.8 oz Last Vital Signs Temp Pulse Resp BP Pulse Ox 98.4 F 88 18 135/77 96 03/26/18 09:55 03/26/18 09:55 03/26/18 09:55 03/26/18 09:55 03/26/18 03:00 Active Medications Acetaminophen (Tylenol -) 650 mg PO Q6H PRN PRN Reason: FEVER Last Admin: 03/26/18 06:23 Dose: 650 mg Acetaminophen (Tylenol -) 325 mg PO Q6H PRN PRN Reason: PAIN 4-6 Albuterol Sulfate (Ventolin 0.083% Nebulizer Soln -) 1 amp NEB Q4H PRN PRN Reason: SHORT OF BREATH/WHEEZING Arformoterol Tartrate (Brovana (Restricted To Pulmonology/Resp) -) 1 amp NEB RBID [facility] Last Admin: 03/26/18 08:34 Dose: 1 amp Fosamprenavir Calcium (Lexiva -) 1,400 mg PO DAILY [facility] Last Admin: 03/26/18 09:57 Dose: 1,400 mg Heparin Sodium (Porcine) (Heparin -) 5,000 unit SQ TID [facility] Last Admin: 03/26/18 05:46 Dose: 5,000 unit Sodium Chloride (Normal Saline -) 1,000 mls @ 100 mls/hr IV ASDIR [facility] Last Admin: 03/26/18 04:30 Dose: 100 mls/hr Ceftriaxone Sodium 2 gm/ (Dextrose) 100 mls @ 200 mls/hr IVPB DAILY [facility]; Protocol Last Admin: 03/26/18 09:57 Dose: 200 mls/hr Doxycycline Hyclate 100 mg/ (Dextrose) 100 mls @ 50 mls/hr IVPB BID [facility] Last Admin: 03/25/18 21:17 Dose: 50 mls/hr Lamivudine (Epivir -) 300 mg PO DAILY [facility] Last Admin: 03/26/18 09:56 Dose: 300 mg Ondansetron HCl (Zofran Injection) 4 mg IVPUSH Q6H PRN PRN Reason: NAUSEA Last Admin: 03/23/18 23:29 Dose: 4 mg Oxycodone HCl (Roxicodone -) 5 mg PO Q6H PRN PRN Reason: PAIN 4-6 Last Admin: 03/25/18 16:26 Dose: 5 mg Raltegravir (Isentress -) 400 mg PO BID [facility] Last Admin: 03/26/18 09:56 Dose: 400 mg Ritonavir (Norvir -) 100 mg PO DAILY [facility] Last Admin: 03/26/18 09:56 Dose: 100 mg Zolpidem Tartrate (Ambien -) 10 mg PO HS PRN PRN Reason: INSOMNIA Last Admin: 03/25/18 21:16 Dose: 10 mg Constitutional: Yes: No Distress, Obese Eyes: Yes: Conjunctiva Clear, EOM Intact HENT: Yes: Atraumatic, Normocephalic Neck: Yes: Supple, Trachea Midline Cardiovascular: Yes: Regular Rate and Rhythm Respiratory: Yes: Cough, Diminished, Rhonchi. No: Accessory Muscle Use, Rales, SOB, SOB on Exertion, Stridor, Tachypnea, Wheezes ...Inspection: Yes: WNL ...Clubbing: No Gastrointestinal: Yes: Normal Bowel Sounds, Soft Renal/: Yes: WNL Musculoskeletal: Yes: WNL Extremities: Yes: WNL Edema: No Peripheral Pulses WNL: Yes Integumentary: Yes: WNL Neurological: Yes: WNL, Alert, Oriented ...Motor Strength: WNL Psychiatric: Yes: WNL, Alert, Oriented Labs: Laboratory Results - last 24 hr 03/23/18 03/25/18 03/26/18 21:30 06:35 06:50 WBC 3.7 L RBC 3.93 Hgb 12.2 Hct 34.9 MCV 88.7 MCH 31.0 MCHC 35.0 RDW 12.8 Plt Count 81 L MPV 8.6 Sodium Potassium Chloride Carbon Dioxide 25 Anion Gap 11 BUN 7 Creatinine 0.7 Creat Clearance w eGFR > 60 Random Glucose 84 Calcium 7.6 L Urine Color Cancelled Urine Appearance Cancelled Urine pH Cancelled Ur Specific [place] Cancelled Urine Protein Cancelled Urine Glucose (UA) Cancelled Urine Ketones Cancelled Urine Blood Cancelled Urine Nitrite Cancelled Urine Bilirubin Cancelled Urine Urobilinogen Cancelled Ur Leukocyte Esterase Cancelled 03/26/18 06:50 WBC RBC Hgb Hct MCV MCH MCHC RDW Plt Count MPV Sodium 137 Potassium 3.6 Chloride 102 Carbon Dioxide 25 Anion Gap 10 BUN 7 Creatinine 0.6 Creat Clearance w eGFR > 60 Random Glucose 86 Calcium 7.7 L Urine Color Urine Appearance Urine pH Ur Specific [place] Urine Protein Urine Glucose (UA) Urine Ketones Urine Blood Urine Nitrite Urine Bilirubin Urine Urobilinogen Ur Leukocyte Esterase Problem List - Problems (1) HIV disease Code(s): B20 - HUMAN IMMUNODEFICIENCY VIRUS [HIV] DISEASE (2) Smoker Code(s): F17.200 - NICOTINE DEPENDENCE, UNSPECIFIED, UNCOMPLICATED (3) Lung nodule, multiple Code(s): R91.8 - OTHER NONSPECIFIC ABNORMAL FINDING OF LUNG FIELD (4) Abdominal pain Code(s): R10.9 - UNSPECIFIED ABDOMINAL PAIN (5) Diarrhea Code(s): R19.7 - DIARRHEA, UNSPECIFIED (6) Fever Code(s): R50.9 - FEVER, UNSPECIFIED Qualifiers: Fever type: unspecified Qualified Code(s): R50.9 - Fever, unspecified Assessment/Plan No smoking was again counseled PFTs an outpatient Patient noted to have multiple nodules on CT imaging from 2006. The same lesion is noted in 2006 which measured 7.2. This is most likely pleural scarring. Discussed findings with the patient. Can make further decisions as an outpatient, but conservative management best course given the 12 year relative stability. GI workup ongoing VTE prophylaxis Nasal O2 PRN BD TX Standing and PRN Dr Michaels Problem List - Problems (1) HIV disease Code(s): B20 - HUMAN IMMUNODEFICIENCY VIRUS [HIV] DISEASE (2) Smoker Code(s): F17.200 - NICOTINE DEPENDENCE, UNSPECIFIED, UNCOMPLICATED (3) Lung nodule, multiple Code(s): R91.8 - OTHER NONSPECIFIC ABNORMAL FINDING OF LUNG FIELD (4) Abdominal pain Code(s): R10.9 - UNSPECIFIED ABDOMINAL PAIN (5) Diarrhea Code(s): R19.7 - DIARRHEA, UNSPECIFIED (6) Fever Code(s): R50.9 - FEVER, UNSPECIFIED Qualifiers: Fever type: unspecified Qualified Code(s): R50.9 - Fever, unspecified
[2018-03-26] MEDS: DOXYCYCLINE INJECTION 100 MG in DEXTROSE 5%-WATER 100 ML IVPB SCH ×2 (11:05→21:28)
--- NOTE | 2018-03-26 11:33 | PN ---
Physical Exam: SUBJECTIVE: Patient is 57 y/o female with a past medical history of HIV and HLD who presents with diarrhea likely to gastroenteritis. She reports she has not had any diarrhea. Patient reports still feeling feverish. No other acute complaints. OBJECTIVE: Vital Signs Period Temp Pulse Resp BP Sys/Lewis Pulse Ox Last 24 Hr 98.4 F-100.7 F 66-100 18-24 135-152/77-85 96 GENERAL: The patient is awake, alert, and fully oriented, in no acute distress. LUNGS: mild expiratory wheezing HEART: Regular rate and rhythm, S1, S2 ABDOMEN: Soft, nontender, nondistended, normoactive bowel sounds EXTREMITIES: 2+ pulses, warm, well-perfused, no edema. PSYCH: Normal mood, normal affect. SKIN: Warm, dry, normal turgor, no rashes or lesions noted Laboratory Results - last 24 hr 03/23/18 03/26/18 03/26/18 21:30 06:50 06:50 WBC 3.7 L RBC 3.93 Hgb 12.2 Hct 34.9 MCV 88.7 MCH 31.0 MCHC 35.0 RDW 12.8 Plt Count 81 L MPV 8.6 Sodium 137 Potassium 3.6 Chloride 102 Carbon Dioxide 25 Anion Gap 10 BUN 7 Creatinine 0.6 Creat Clearance w eGFR > 60 Random Glucose 86 Calcium 7.7 L Urine Color Cancelled Urine Appearance Cancelled Urine pH Cancelled Ur Specific [place] Cancelled Urine Protein Cancelled Urine Glucose (UA) Cancelled Urine Ketones Cancelled Urine Blood Cancelled Urine Nitrite Cancelled Urine Bilirubin Cancelled Urine Urobilinogen Cancelled Ur Leukocyte Esterase Cancelled Active Medications Generic Name Dose Route Start Last Admin Trade Name Wolfq PRN Reason Stop Dose Admin Acetaminophen 650 mg 03/24/18 01:22 03/26/18 06:23 Tylenol - PO 650 mg Q6H PRN Administration FEVER Acetaminophen 325 mg 03/25/18 15:30 Tylenol - PO Q6H PRN PAIN 4-6 Albuterol Sulfate 1 amp 03/25/18 10:00 Ventolin 0.083% Nebulizer Soln - NEB Q4H PRN SHORT OF BREATH/WHEEZING Arformoterol Tartrate 1 amp 03/25/18 20:00 03/26/18 08:34 Brovana (Restricted To Pulmonology/Resp) - NEB 1 amp RBID [facility]EVIN Administration Fosamprenavir Calcium 1,400 mg 03/25/18 15:00 03/26/18 09:57 Lexiva - PO 1,400 mg DAILY [facility] Administration Heparin Sodium (Porcine) 5,000 unit 03/25/18 22:00 03/26/18 05:46 Heparin - SQ 5,000 unit TID [facility] Administration Sodium Chloride 1,000 mls @ 100 mls/hr 03/23/18 22:15 03/26/18 04:30 Normal Saline - IV 100 mls/hr ASDIR [facility] Administration Ceftriaxone Sodium 2 gm/ 100 mls @ 200 mls/hr 03/24/18 11:45 03/26/18 09:57 Dextrose IVPB 200 mls/hr DAILY [facility] Administration Protocol Doxycycline Hyclate 100 mg/ 100 mls @ 50 mls/hr 03/25/18 22:00 03/26/18 11:05 Dextrose IVPB 50 mls/hr BID [facility] Administration Lamivudine 300 mg 03/26/18 10:00 03/26/18 09:56 Epivir - PO 300 mg DAILY [facility] Administration Ondansetron HCl 4 mg 03/23/18 22:10 03/23/18 23:29 Zofran Injection IVPUSH 4 mg Q6H PRN Administration NAUSEA Oxycodone HCl 5 mg 03/25/18 15:30 03/25/18 16:26 Roxicodone - PO 5 mg Q6H PRN Administration PAIN 4-6 Raltegravir 400 mg 03/25/18 22:00 03/26/18 09:56 Isentress - PO 400 mg BID [facility] Administration Ritonavir 100 mg 03/25/18 15:00 03/26/18 09:56 Norvir - PO 100 mg DAILY [facility] Administration Zolpidem Tartrate 10 mg 03/23/18 22:10 03/25/18 21:16 Ambien - PO 10 mg HS PRN Administration INSOMNIA ASSESSMENT/PLAN: Patient is 57 y/o female with a past medical history of HIV and HLD who presents with diarrhea likely to gastroenteritis. #diarrhea 2/2 to possible gastroenteritis - NS @ 100 - Ceftriaxone 2 gm (day 3) - Doxycycline 100 mg (day 2) - acetaminophen 650 prn pain - f/u Dr. gomez; fever, leukopenia, thrombocytopenia, broaden antibiotics likely to viral syndrome - febrile over night - bcx: no organsim pending, f/u repeat bcx 03/25 #Pulmonary nodule - 8.8 cm RUL pleural based nodule - Pulm consult Dr. Michaels; same lesion in 2005, most likely scarring, conservative management given 12 year stability - NC 2 L #HIV - VL undeteactable CD4 700 - Ritonavir - Raltegravir - Lamivudine - Fosamprenavir #HLD - Atorvastatin #Insomnia - Zolpidem 10 mg po hs - mirtazapine 15 mg po hs Dispo: Spoke with Dr. Gomez, Dr. Holden here tomorrow, monitor patient to be discharged tomorrow with 21 days total of Doxycycline Visit type - Emergency Visit Emergency Visit: No - New Patient This patient is new to me today: No - Critical Care Critical Care patient: No
[2018-03-26] MEDS: ONDANSETRON 4 MG/2 ML VIAL IVPUSH PRN ×2 (13:13→21:37)
[2018-03-26] MEDS: oxyCODONE HCL 5 MG TABLET PO PRN ×2 (13:13→21:36)
--- NOTE | 2018-03-26 17:10 | PN ---
Teaching Attending Note Name of Resident: Judit Flowers ATTENDING PHYSICIAN STATEMENT I saw and evaluated the patient. I reviewed the resident's note and discussed the case with the resident. I agree with the resident's findings and plan as documented. SUBJECTIVE: Patient is having occasional diarrhea. SOB is improving. Had temp 100.7 this morning. OBJECTIVE: Vital Signs Period Temp Pulse Resp BP Sys/Lewis Pulse Ox Last 24 Hr 98.4 F-100.7 F 66-100 18-24 134-152/66-85 96 HEART: S1S2, RRR LUNGS: Bilateral rhonchi ABDOMEN: Obese, soft, non-tender, non-distended, normal BS EXTREMITIES: No edema Laboratory Results - last 24 hr 03/23/18 03/26/18 03/26/18 21:30 06:50 06:50 WBC 3.7 L RBC 3.93 Hgb 12.2 Hct 34.9 MCV 88.7 MCH 31.0 MCHC 35.0 RDW 12.8 Plt Count 81 L MPV 8.6 Sodium 137 Potassium 3.6 Chloride 102 Carbon Dioxide 25 Anion Gap 10 BUN 7 Creatinine 0.6 Creat Clearance w eGFR > 60 Random Glucose 86 Calcium 7.7 L Urine Color Cancelled Urine Appearance Cancelled Urine pH Cancelled Ur Specific [place] Cancelled Urine Protein Cancelled Urine Glucose (UA) Cancelled Urine Ketones Cancelled Urine Blood Cancelled Urine Nitrite Cancelled Urine Bilirubin Cancelled Urine Urobilinogen Cancelled Ur Leukocyte Esterase Cancelled Current Medications Generic Name Dose Route Start Last Admin Trade Name Freq PRN Reason Stop Dose Admin Acetaminophen 650 mg 03/24/18 01:22 03/26/18 06:23 Tylenol - PO 650 mg Q6H PRN Administration FEVER Acetaminophen 325 mg 03/25/18 15:30 Tylenol - PO Q6H PRN PAIN 4-6 Albuterol Sulfate 1 amp 03/25/18 10:00 Ventolin 0.083% Nebulizer Soln - NEB Q4H PRN SHORT OF BREATH/WHEEZING Arformoterol Tartrate 1 amp 03/25/18 20:00 03/26/18 08:34 Brovana (Restricted To Pulmonology/Resp) - NEB 1 amp RBID [facility]IN Administration Fosamprenavir Calcium 1,400 mg 03/25/18 15:00 03/26/18 09:57 Lexiva - PO 1,400 mg DAILY [facility] Administration Heparin Sodium (Porcine) 5,000 unit 03/25/18 22:00 03/26/18 13:13 Heparin - SQ 5,000 unit TID [facility] Administration Sodium Chloride 1,000 mls @ 100 mls/hr 03/23/18 22:15 03/26/18 04:30 Normal Saline - IV 100 mls/hr ASDIR [facility] Administration Ceftriaxone Sodium 2 gm/ 100 mls @ 200 mls/hr 03/24/18 11:45 03/26/18 09:57 Dextrose IVPB 200 mls/hr DAILY [facility] Administration Protocol Doxycycline Hyclate 100 mg/ 100 mls @ 50 mls/hr 03/25/18 22:00 03/26/18 11:05 Dextrose IVPB 50 mls/hr BID [facility] Administration Lamivudine 300 mg 03/26/18 10:00 03/26/18 09:56 Epivir - PO 300 mg DAILY [facility] Administration Ondansetron HCl 4 mg 03/23/18 22:10 03/26/18 13:13 Zofran Injection IVPUSH 4 mg Q6H PRN Administration NAUSEA Oxycodone HCl 5 mg 03/25/18 15:30 03/26/18 13:13 Roxicodone - PO 5 mg Q6H PRN Administration PAIN 4-6 Raltegravir 400 mg 03/25/18 22:00 03/26/18 09:56 Isentress - PO 400 mg BID [facility] Administration Ritonavir 100 mg 03/25/18 15:00 03/26/18 09:56 Norvir - PO 100 mg DAILY [facility] Administration Zolpidem Tartrate 10 mg 03/23/18 22:10 03/25/18 21:16 Ambien - PO 10 mg HS PRN Administration INSOMNIA ASSESSMENT AND PLAN: This is a 57 year old woman with a history of HIV, hyperlipidemia who presented to the ED with fever, chills, nausea and diarrhea. 1. Acute gastroenteritis, possible pneumonia, possible viral syndrome, possible tick-borne illness - Fever improving - Diarrhea persists - Continue IV fluid, empiric Rocephin and Doxycycline - Oxygen to maintain saturation > 90% - Continue Brovana, albuterol nebs as needed - Blood cultures (03/23 and 03/25) negative - Stool culture pending 2. HIV - Recent undetectable viral load, CD4 700 - Continue Norvir, Isentress, Epivir, Lexiva 3. Hyperlipidemia 4. RML lung nodule, 9 mm - Outpatient follow up 5. Obesity
[2018-03-26] MEDS: ZOLPIDEM TARTRATE 5 MG TABLET PO PRN (21:36)
[2018-03-27] MEDS: HEPARIN NA (PORCINE) 5,000 UNITS/ML 1ML VIAL SQ SCH ×3 (06:10→21:10)
[2018-03-27] MEDS: ARFORMOTEROL TARTRATE 15 MCG/2 ML VIAL NEB SCH ×2 (07:20→20:59)
[2018-03-27] MEDS ORDERED: PT OWN MED DRAWER 7, Y5N ONE ×2 (09:35→20:57)
[2018-03-27] MEDS ORDERED: DEXTROSE 5%-WATER 100 ML IVPB ONE (09:36)
[2018-03-27] MEDS: CEFTRIAXONE 2 GM in DEXTROSE 5%-WATER 100 ML IVPB SCH (09:39)
[2018-03-27] MEDS: RITONAVIR 100 MG TABLET PO SCH (09:40)
[2018-03-27] MEDS: FOSAMPRENAVIR CALCIUM 700 MG TABLET PO SCH (09:41)
[2018-03-27] MEDS: RALTEGRAVIR POTASSIUM 400 MG TAB PO SCH ×2 (09:41→21:08)
[2018-03-27] MEDS: lamiVUDine 150 MG TABLET PO SCH (09:41)
[2018-03-27] MEDS: oxyCODONE HCL 5 MG TABLET PO PRN ×2 (09:48→21:09)
[2018-03-27] MEDS: ACETAMINOPHEN 325 MG TABLET (FP) PO PRN ×2 (09:49→21:10)
--- NOTE | 2018-03-27 10:26 | PN ---
Progress Note (short form) - Note Progress Note: Breathing continues to improve. No SOB. No CP. Slight cough. GI symptoms persist, but diarrhea less watery. Intake & Output 03/24/18 03/25/18 03/26/18 03/27/18 23:59 23:59 23:59 23:59 Intake Total 2450 2650 1900 1300 Balance 2450 2650 1900 1300 Weight 176 lb 5 oz 179 lb 4 oz 174 lb 4.8 oz 176 lb 2 oz Last Vital Signs Temp Pulse Resp BP Pulse Ox 99.4 F 82 20 111/56 96 03/27/18 06:00 03/27/18 06:00 03/27/18 06:00 03/27/18 06:00 03/26/18 21:00 Active Medications Acetaminophen (Tylenol -) 650 mg PO Q6H PRN PRN Reason: FEVER Last Admin: 03/26/18 06:23 Dose: 650 mg Acetaminophen (Tylenol -) 325 mg PO Q6H PRN PRN Reason: PAIN 4-6 Last Admin: 03/27/18 09:49 Dose: 325 mg Albuterol Sulfate (Ventolin 0.083% Nebulizer Soln -) 1 amp NEB Q4H PRN PRN Reason: SHORT OF BREATH/WHEEZING Arformoterol Tartrate (Brovana (Restricted To Pulmonology/Resp) -) 1 amp NEB RBID [facility] Last Admin: 03/27/18 07:20 Dose: 1 amp Fosamprenavir Calcium (Lexiva -) 1,400 mg PO DAILY [facility] Last Admin: 03/27/18 09:41 Dose: 1,400 mg Heparin Sodium (Porcine) (Heparin -) 5,000 unit SQ TID [facility] Last Admin: 03/27/18 06:10 Dose: 5,000 unit Sodium Chloride (Normal Saline -) 1,000 mls @ 100 mls/hr IV ASDIR [facility] Last Admin: 03/26/18 23:00 Dose: Not Given Ceftriaxone Sodium 2 gm/ (Dextrose) 100 mls @ 200 mls/hr IVPB DAILY [facility]; Protocol Last Admin: 03/27/18 09:39 Dose: 200 mls/hr Doxycycline Hyclate 100 mg/ (Dextrose) 100 mls @ 50 mls/hr IVPB BID [facility] Last Admin: 03/26/18 21:28 Dose: 50 mls/hr Lamivudine (Epivir -) 300 mg PO DAILY [facility] Last Admin: 03/27/18 09:41 Dose: 300 mg Ondansetron HCl (Zofran Injection) 4 mg IVPUSH Q6H PRN PRN Reason: NAUSEA Last Admin: 03/26/18 21:37 Dose: 4 mg Oxycodone HCl (Roxicodone -) 5 mg PO Q6H PRN PRN Reason: PAIN 4-6 Last Admin: 03/27/18 09:48 Dose: 5 mg Raltegravir (Isentress -) 400 mg PO BID [facility] Last Admin: 03/27/18 09:41 Dose: 400 mg Ritonavir (Norvir -) 100 mg PO DAILY [facility] Last Admin: 03/27/18 09:40 Dose: 100 mg Zolpidem Tartrate (Ambien -) 10 mg PO HS PRN PRN Reason: INSOMNIA Last Admin: 03/26/18 21:36 Dose: 10 mg Constitutional: Yes: No Distress, Obese Eyes: Yes: Conjunctiva Clear, EOM Intact HENT: Yes: Atraumatic, Normocephalic Neck: Yes: Supple, Trachea Midline Cardiovascular: Yes: Regular Rate and Rhythm Respiratory: Yes: Cough, Diminished, Rhonchi. No: Accessory Muscle Use, Rales, SOB, SOB on Exertion, Stridor, Tachypnea, Wheezes ...Inspection: Yes: WNL ...Clubbing: No Gastrointestinal: Yes: Normal Bowel Sounds, Soft Renal/: Yes: WNL Musculoskeletal: Yes: WNL Extremities: Yes: WNL Edema: No Peripheral Pulses WNL: Yes Integumentary: Yes: WNL Neurological: Yes: WNL, Alert, Oriented ...Motor Strength: WNL Psychiatric: Yes: WNL, Alert, Oriented Labs: Problem List - Problems (1) HIV disease Code(s): B20 - HUMAN IMMUNODEFICIENCY VIRUS [HIV] DISEASE (2) Smoker Code(s): F17.200 - NICOTINE DEPENDENCE, UNSPECIFIED, UNCOMPLICATED (3) Lung nodule, multiple Code(s): R91.8 - OTHER NONSPECIFIC ABNORMAL FINDING OF LUNG FIELD (4) Abdominal pain Code(s): R10.9 - UNSPECIFIED ABDOMINAL PAIN (5) Diarrhea Code(s): R19.7 - DIARRHEA, UNSPECIFIED (6) Fever Code(s): R50.9 - FEVER, UNSPECIFIED Qualifiers: Fever type: unspecified Qualified Code(s): R50.9 - Fever, unspecified Assessment/Plan No smoking PFTs an outpatient Patient noted to have multiple nodules on CT imaging from 2006. The same lesion is noted in 2006 which measured 7.2. This is most likely pleural scarring. Discussed findings with the patient. Can make further decisions as an outpatient, but conservative management best course given the 12 year relative stability. GI workup ongoing VTE prophylaxis Nasal O2 PRN BD TX Standing and PRN Dr Michaels Problem List - Problems (1) HIV disease Code(s): B20 - HUMAN IMMUNODEFICIENCY VIRUS [HIV] DISEASE (2) Smoker Code(s): F17.200 - NICOTINE DEPENDENCE, UNSPECIFIED, UNCOMPLICATED (3) Lung nodule, multiple Code(s): R91.8 - OTHER NONSPECIFIC ABNORMAL FINDING OF LUNG FIELD (4) Abdominal pain Code(s): R10.9 - UNSPECIFIED ABDOMINAL PAIN (5) Diarrhea Code(s): R19.7 - DIARRHEA, UNSPECIFIED (6) Fever Code(s): R50.9 - FEVER, UNSPECIFIED Qualifiers: Fever type: unspecified Qualified Code(s): R50.9 - Fever, unspecified
[2018-03-27] MEDS: DOXYCYCLINE INJECTION 100 MG in DEXTROSE 5%-WATER 100 ML IVPB SCH ×2 (10:37→21:07)
--- NOTE | 2018-03-27 13:22 | PN ---
Progress Note (short form) - Note Progress Note: no more fevers still with nausea has loose watery nonbloody stools able to eat vomited last night Vital Signs Period Temp Pulse Resp BP Sys/Lewis Pulse Ox Last 24 Hr 98.1 F-99.8 F 76-92 20-20 111-142/56-84 96 cor-rrr lungs clear abd soft,nt ext no edema CBC, BMP 03/26/18 06:50 03/26/18 06:50 Microbiology 03/25/18 08:11 Blood - Peripheral Venous Blood Culture - Preliminary NO GROWTH OBTAINED AFTER 48 HOURS, INCUBATION TO CONTINUE FOR 3 DAYS. 03/25/18 07:30 Blood - Peripheral Venous Blood Culture - Preliminary NO GROWTH OBTAINED AFTER 48 HOURS, INCUBATION TO CONTINUE FOR 3 DAYS. 03/23/18 13:00 Blood - Peripheral Venous Blood Culture - Preliminary NO GROWTH OBTAINED AFTER 72 HOURS, INCUBATION TO CONTINUE FOR 2 DAYS. 03/23/18 13:00 Blood - Peripheral Venous Blood Culture - Preliminary NO GROWTH OBTAINED AFTER 72 HOURS, INCUBATION TO CONTINUE FOR 2 DAYS. 03/23/18 21:30 Urine - Urine Clean Catch Urine Culture - Final Contaminated: Please Repeat a/p fevers resolved continues to have diarrhea please send stool studies repeat labs please
--- NOTE | 2018-03-27 15:41 | PN ---
Teaching Attending Note Name of Resident: Judit Flowers ATTENDING PHYSICIAN STATEMENT I saw and evaluated the patient. I reviewed the resident's note and discussed the case with the resident. I agree with the resident's findings and plan as documented. SUBJECTIVE: Patient reports nausea, vomiting, diarrhea. She has non-productive cough and denies SOB. OBJECTIVE: Vital Signs Period Temp Pulse Resp BP Sys/Lewis Pulse Ox Last 24 Hr 98.1 F-99.4 F 77-92 20-20 111-142/56-84 96 HEART: S1S2, RRR LUNGS: Clear ABDOMEN: Obese, soft, non-tender, non-distended, normal BS EXTREMITIES: No edema Current Medications Generic Name Dose Route Start Last Admin Trade Name Freq PRN Reason Stop Dose Admin Acetaminophen 650 mg 03/24/18 01:22 03/26/18 06:23 Tylenol - PO 650 mg Q6H PRN Administration FEVER Acetaminophen 325 mg 03/25/18 15:30 03/27/18 09:49 Tylenol - PO 325 mg Q6H PRN Administration PAIN 4-6 Albuterol Sulfate 1 amp 03/25/18 10:00 Ventolin 0.083% Nebulizer Soln - NEB Q4H PRN SHORT OF BREATH/WHEEZING Arformoterol Tartrate 1 amp 03/25/18 20:00 03/27/18 07:20 Brovana (Restricted To Pulmonology/Resp) - NEB 1 amp RBID KEVIN Administration Fosamprenavir Calcium 1,400 mg 03/25/18 15:00 03/27/18 09:41 Lexiva - PO 1,400 mg DAILY [facility]IN Administration Heparin Sodium (Porcine) 5,000 unit 03/25/18 22:00 03/27/18 14:50 Heparin - SQ Not Given TID KEVIN Sodium Chloride 1,000 mls @ 100 mls/hr 03/23/18 22:15 03/26/18 23:00 Normal Saline - IV Not Given ASDIR KEVIN Ceftriaxone Sodium 2 gm/ 100 mls @ 200 mls/hr 03/24/18 11:45 03/27/18 09:39 Dextrose IVPB 200 mls/hr DAILY [facility]EVIN Administration Protocol Doxycycline Hyclate 100 mg/ 100 mls @ 50 mls/hr 03/25/18 22:00 03/27/18 10:37 Dextrose IVPB 50 mls/hr BID KEVIN Administration Lamivudine 300 mg 03/26/18 10:00 03/27/18 09:41 Epivir - PO 300 mg DAILY [facility]EVIN Administration Ondansetron HCl 4 mg 03/23/18 22:10 03/26/18 21:37 Zofran Injection IVPUSH 4 mg Q6H PRN Administration NAUSEA Oxycodone HCl 5 mg 03/25/18 15:30 03/27/18 09:48 Roxicodone - PO 5 mg Q6H PRN Administration PAIN 4-6 Raltegravir 400 mg 03/25/18 22:00 03/27/18 09:41 Isentress - PO 400 mg BID KEVIN Administration Ritonavir 100 mg 03/25/18 15:00 03/27/18 09:40 Norvir - PO 100 mg DAILY KEVIN Administration Zolpidem Tartrate 10 mg 03/23/18 22:10 03/26/18 21:36 Ambien - PO 10 mg HS PRN Administration INSOMNIA ASSESSMENT AND PLAN: This is a 57 year old woman with a history of HIV, hyperlipidemia who presented to the ED with fever, chills, nausea and diarrhea. 1. Acute gastroenteritis, possible pneumonia, possible viral syndrome, possible tick-borne illness - Afebrile - Diarrhea persists - Continue IV fluid, empiric Rocephin and Doxycycline - Oxygen to maintain saturation > 90% - Continue Brovana, albuterol nebs as needed - Blood cultures (03/23 and 03/25) negative - Stool studies pending - Lyme Ab, Coxsackie Ab, Anaplasma PCR pending 2. HIV - Recent undetectable viral load, CD4 700 - Continue Norvir, Isentress, Epivir, Lexiva 3. Hyperlipidemia 4. RML lung nodule, 9 mm - Outpatient follow up 5. Obesity with BMI 30.2
[2018-03-27] MEDS: ONDANSETRON 4 MG/2 ML VIAL IVPUSH PRN (16:57)
--- NOTE | 2018-03-27 20:37 | PN ---
Physical Exam: SUBJECTIVE: Patient is 57 y/o female with a past medical history of HIV and HLD who presents with diarrhea likely to gastroenteritis. Patient reports she is still having diarrhea, but she did not have nay fevers overnight. OBJECTIVE: Vital Signs Period Temp Pulse Resp BP Sys/Lewis Pulse Ox Last 24 Hr 98.1 F-99.4 F 79-92 20-20 111-142/56-84 96 GENERAL: The patient is awake, alert, and fully oriented, in no acute distress. LUNGS: mild expiratory wheezing HEART: Regular rate and rhythm, S1, S2 ABDOMEN: Soft, nontender, nondistended, normoactive bowel sounds EXTREMITIES: 2+ pulses, warm, well-perfused, no edema. PSYCH: Normal mood, normal affect. SKIN: Warm, dry, normal turgor, no rashes or lesions noted Laboratory Results - last 24 hr 03/26/18 06:50 Lyme Screen IgG & IgM <0.91 Active Medications Generic Name Dose Route Start Last Admin Trade Name Freq PRN Reason Stop Dose Admin Acetaminophen 650 mg 03/24/18 01:22 03/26/18 06:23 Tylenol - PO 650 mg Q6H PRN Administration FEVER Acetaminophen 325 mg 03/25/18 15:30 03/27/18 09:49 Tylenol - PO 325 mg Q6H PRN Administration PAIN 4-6 Albuterol Sulfate 1 amp 03/25/18 10:00 Ventolin 0.083% Nebulizer Soln - NEB Q4H PRN SHORT OF BREATH/WHEEZING Arformoterol Tartrate 1 amp 03/25/18 20:00 03/27/18 07:20 Brovana (Restricted To Pulmonology/Resp) - NEB 1 amp RBID KEVIN Administration Fosamprenavir Calcium 1,400 mg 03/25/18 15:00 03/27/18 09:41 Lexiva - PO 1,400 mg DAILY KEVIN Administration Heparin Sodium (Porcine) 5,000 unit 03/25/18 22:00 03/27/18 14:50 Heparin - SQ Not Given TID KEVIN Sodium Chloride 1,000 mls @ 100 mls/hr 03/23/18 22:15 03/26/18 23:00 Normal Saline - IV Not Given ASDIR KEVIN Ceftriaxone Sodium 2 gm/ 100 mls @ 200 mls/hr 03/24/18 11:45 03/27/18 09:39 Dextrose IVPB 200 mls/hr DAILY KEVIN Administration Protocol Doxycycline Hyclate 100 mg/ 100 mls @ 50 mls/hr 03/25/18 22:00 03/27/18 10:37 Dextrose IVPB 50 mls/hr BID KEVIN Administration Lamivudine 300 mg 03/26/18 10:00 03/27/18 09:41 Epivir - PO 300 mg DAILY KEVIN Administration Ondansetron HCl 4 mg 03/23/18 22:10 03/27/18 16:57 Zofran Injection IVPUSH 4 mg Q6H PRN Administration NAUSEA Oxycodone HCl 5 mg 03/25/18 15:30 03/27/18 09:48 Roxicodone - PO 5 mg Q6H PRN Administration PAIN 4-6 Raltegravir 400 mg 03/25/18 22:00 03/27/18 09:41 Isentress - PO 400 mg BID KEVIN Administration Ritonavir 100 mg 03/25/18 15:00 03/27/18 09:40 Norvir - PO 100 mg DAILY KEVIN Administration Zolpidem Tartrate 10 mg 03/23/18 22:10 03/26/18 21:36 Ambien - PO 10 mg HS PRN Administration INSOMNIA ASSESSMENT/PLAN: Patient is 57 y/o female with a past medical history of HIV and HLD who presents with diarrhea likely to gastroenteritis. #diarrhea 2/2 to possible gastroenteritis possible tick borne illness, possible viral syndrome - NS @ 100 - Ceftriaxone 2 gm (day 4) - Doxycycline 100 mg (day 3) - acetaminophen 650 prn pain - f/u Dr. pastrana; fever, leukopenia, thrombocytopenia, broaden antibiotics likely to viral syndrome - febrile over night - bcx: no organsim pending, for 03/23 and 03/25 - f/u stool studies #Pulmonary nodule - 8.8 cm RUL pleural based nodule - Pulm consult Dr. Michaels; same lesion in 2005, most likely scarring, conservative management given 12 year stability - NC 2 L #HIV - VL undeteactable CD4 700 - Ritonavir - Raltegravir - Lamivudine - Fosamprenavir #HLD - Atorvastatin #Insomnia - Zolpidem 10 mg po hs - mirtazapine 15 mg po hs Dispo: f/u ID reccomendation Visit type - Emergency Visit Emergency Visit: No - New Patient This patient is new to md today: No - Critical Care Critical Care patient: No
[2018-03-27] MEDS: ZOLPIDEM TARTRATE 5 MG TABLET PO PRN (21:08)
[2018-03-27] MEDS: SODIUM CHLORIDE 1,000 ML IV SCH (22:30)
[2018-03-28] MEDS: HEPARIN NA (PORCINE) 5,000 UNITS/ML 1ML VIAL SQ SCH ×3 (05:31→21:06)
[2018-03-28] MEDS: SODIUM CHLORIDE 1,000 ML IV SCH ×3 (05:31→22:15)
[2018-03-28 07:45] LABS: HEMATOCRIT 36.2 % (32.4-45.2); HEMOGLOBIN 12.3 GM/dL (10.7-15.3); MCH 30.4 pg (25.7-33.7); MCHC 34.1 g/dl (32.0-36.0); MEAN CELL VOLUME 89.1 fl (80-96); MEAN PLT VOLUME 9.1 fl (7.5-11.1); PLATELET COUNT 113 K/MM3 (134-434); RBC 4.06 M/mm3 (3.60-5.2); RDW 13.4 % (11.6-15.6); WHITE BLOOD COUNT 5.3 K/mm3 (4.0-10.0)
[2018-03-28] MEDS: ARFORMOTEROL TARTRATE 15 MCG/2 ML VIAL NEB SCH ×2 (07:51→20:22)
[2018-03-28] MEDS: ONDANSETRON 4 MG/2 ML VIAL IVPUSH PRN ×2 (07:53→16:40)
[2018-03-28 08:04] LABS: ANION GAP 10 (8-16); BLOOD UREA NITROGEN 6 mg/dL (7-18); CHLORIDE 105 mmol/L (98-107); CO2 26 mmol/L (21-32); CREATININE 0.7 mg/dL (0.55-1.02); GLUCOSE,RANDOM 91 mg/dL (74-106); POTASSIUM 3.9 mmol/L (3.5-5.1); SODIUM 141 mmol/L (136-145)
[2018-03-28] MEDS ORDERED: DEXTROSE 5%-WATER 100 ML IVPB ONE (09:34)
[2018-03-28] MEDS ORDERED: PT OWN MED DRAWER 7, Y5N ONE ×2 (09:34→21:04)
[2018-03-28] MEDS: RITONAVIR 100 MG TABLET PO SCH (09:39)
[2018-03-28] MEDS: lamiVUDine 150 MG TABLET PO SCH (09:39)
[2018-03-28] MEDS: DOXYCYCLINE INJECTION 100 MG in DEXTROSE 5%-WATER 100 ML IVPB SCH ×2 (09:40→21:06)
[2018-03-28] MEDS: FOSAMPRENAVIR CALCIUM 700 MG TABLET PO SCH (09:40)
[2018-03-28] MEDS: CEFTRIAXONE 2 GM in DEXTROSE 5%-WATER 100 ML IVPB SCH (09:40)
[2018-03-28] MEDS: RALTEGRAVIR POTASSIUM 400 MG TAB PO SCH ×2 (09:40→21:06)
--- NOTE | 2018-03-28 09:46 | PN ---
Progress Note (short form) - Note Progress Note: Breathing continues to improve. No SOB. No CP. Slight cough. GI symptoms persist. Intake & Output 03/25/18 03/26/18 03/27/18 03/28/18 23:59 23:59 23:59 23:59 Intake Total 2650 1900 3500 1200 Balance 2650 1900 3500 1200 Weight 179 lb 4 oz 174 lb 4.8 oz 176 lb 2 oz 181 lb 3 oz Last Vital Signs Temp Pulse Resp BP Pulse Ox 98.2 F 78 18 136/71 97 03/28/18 09:35 03/28/18 09:35 03/28/18 09:35 03/28/18 09:35 03/27/18 22:16 Active Medications Acetaminophen (Tylenol -) 650 mg PO Q6H PRN PRN Reason: FEVER Last Admin: 03/26/18 06:23 Dose: 650 mg Acetaminophen (Tylenol -) 325 mg PO Q6H PRN PRN Reason: PAIN 4-6 Last Admin: 03/27/18 21:10 Dose: 325 mg Albuterol Sulfate (Ventolin 0.083% Nebulizer Soln -) 1 amp NEB Q4H PRN PRN Reason: SHORT OF BREATH/WHEEZING Arformoterol Tartrate (Brovana (Restricted To Pulmonology/Resp) -) 1 amp NEB RBID [facility] Last Admin: 03/28/18 07:51 Dose: 1 amp Fosamprenavir Calcium (Lexiva -) 1,400 mg PO DAILY [facility] Last Admin: 03/28/18 09:40 Dose: 1,400 mg Heparin Sodium (Porcine) (Heparin -) 5,000 unit SQ TID [facility] Last Admin: 03/28/18 05:31 Dose: 5,000 unit Sodium Chloride (Normal Saline -) 1,000 mls @ 100 mls/hr IV ASDIR KEVIN Last Admin: 03/28/18 05:31 Dose: Not Given Ceftriaxone Sodium 2 gm/ (Dextrose) 100 mls @ 200 mls/hr IVPB DAILY [facility]; Protocol Last Admin: 03/28/18 09:40 Dose: 200 mls/hr Doxycycline Hyclate 100 mg/ (Dextrose) 100 mls @ 50 mls/hr IVPB BID [facility] Last Admin: 03/28/18 09:40 Dose: 50 mls/hr Lamivudine (Epivir -) 300 mg PO DAILY [facility] Last Admin: 03/28/18 09:39 Dose: 300 mg Ondansetron HCl (Zofran Injection) 4 mg IVPUSH Q6H PRN PRN Reason: NAUSEA Last Admin: 03/28/18 07:53 Dose: 4 mg Oxycodone HCl (Roxicodone -) 5 mg PO Q6H PRN PRN Reason: PAIN 4-6 Last Admin: 03/27/18 21:09 Dose: 5 mg Raltegravir (Isentress -) 400 mg PO BID [facility] Last Admin: 03/28/18 09:40 Dose: 400 mg Ritonavir (Norvir -) 100 mg PO DAILY [facility] Last Admin: 03/28/18 09:39 Dose: 100 mg Zolpidem Tartrate (Ambien -) 10 mg PO HS PRN PRN Reason: INSOMNIA Last Admin: 03/27/18 21:08 Dose: 10 mg Constitutional: Yes: No Distress, Obese Eyes: Yes: Conjunctiva Clear, EOM Intact HENT: Yes: Atraumatic, Normocephalic Neck: Yes: Supple, Trachea Midline Cardiovascular: Yes: Regular Rate and Rhythm Respiratory: Yes: Cough, Diminished, Rhonchi. No: Accessory Muscle Use, Rales, SOB, SOB on Exertion, Stridor, Tachypnea, Wheezes ...Inspection: Yes: WNL ...Clubbing: No Gastrointestinal: Yes: Normal Bowel Sounds, Soft Renal/: Yes: WNL Musculoskeletal: Yes: WNL Extremities: Yes: WNL Edema: No Peripheral Pulses WNL: Yes Integumentary: Yes: WNL Neurological: Yes: WNL, Alert, Oriented ...Motor Strength: WNL Psychiatric: Yes: WNL, Alert, Oriented Labs: Laboratory Results - last 24 hr 03/26/18 03/28/18 03/28/18 06:50 07:15 07:15 WBC 5.3 RBC 4.06 Hgb 12.3 Hct 36.2 MCV 89.1 MCH 30.4 MCHC 34.1 RDW 13.4 Plt Count 113 L D MPV 9.1 Sodium 141 Potassium 3.9 Chloride 105 Carbon Dioxide 26 Anion Gap 10 BUN 6 L Creatinine 0.7 Creat Clearance w eGFR > 60 Random Glucose 91 Calcium 8.0 L Lyme Screen IgG & IgM <0.91 Problem List - Problems (1) HIV disease Code(s): B20 - HUMAN IMMUNODEFICIENCY VIRUS [HIV] DISEASE (2) Smoker Code(s): F17.200 - NICOTINE DEPENDENCE, UNSPECIFIED, UNCOMPLICATED (3) Lung nodule, multiple Code(s): R91.8 - OTHER NONSPECIFIC ABNORMAL FINDING OF LUNG FIELD (4) Abdominal pain Code(s): R10.9 - UNSPECIFIED ABDOMINAL PAIN (5) Diarrhea Code(s): R19.7 - DIARRHEA, UNSPECIFIED (6) Fever Code(s): R50.9 - FEVER, UNSPECIFIED Qualifiers: Fever type: unspecified Qualified Code(s): R50.9 - Fever, unspecified Assessment/Plan No smoking PFTs an outpatient Patient noted to have multiple nodules on CT imaging from 2006. The same lesion is noted in 2006 which measured 7.2. This is most likely pleural scarring. Discussed findings with the patient. Can make further decisions as an outpatient, but conservative management best course given the 12 year relative stability. GI workup for diarrhea ongoing VTE prophylaxis Nasal O2 PRN BD TX Standing and PRN Dr Michaels Problem List - Problems (1) HIV disease Code(s): B20 - HUMAN IMMUNODEFICIENCY VIRUS [HIV] DISEASE (2) Smoker Code(s): F17.200 - NICOTINE DEPENDENCE, UNSPECIFIED, UNCOMPLICATED (3) Lung nodule, multiple Code(s): R91.8 - OTHER NONSPECIFIC ABNORMAL FINDING OF LUNG FIELD (4) Abdominal pain Code(s): R10.9 - UNSPECIFIED ABDOMINAL PAIN (5) Diarrhea Code(s): R19.7 - DIARRHEA, UNSPECIFIED (6) Fever Code(s): R50.9 - FEVER, UNSPECIFIED Qualifiers: Fever type: unspecified Qualified Code(s): R50.9 - Fever, unspecified
[2018-03-28] MEDS: oxyCODONE HCL 5 MG TABLET PO PRN ×2 (09:50→16:40)
[2018-03-28] MEDS: ACETAMINOPHEN 325 MG TABLET (FP) PO PRN ×2 (09:50→16:40)
--- NOTE | 2018-03-28 11:15 | PN ---
Progress Note (short form) - Note Progress Note: no more fevers no vomiting no diarrhea now for last 2 hours stools sent yesterday Vital Signs Period Temp Pulse Resp BP Sys/Lewis Pulse Ox Last 24 Hr 98.0 F-98.9 F 73-82 18-20 136-148/68-80 97 cor-rrr lungs clear abd soft,nt ext no edema CBC, BMP 03/28/18 07:15 03/28/18 07:15 Microbiology 03/25/18 08:11 Blood - Peripheral Venous Blood Culture - Preliminary NO GROWTH OBTAINED AFTER 72 HOURS, INCUBATION TO CONTINUE FOR 2 DAYS. 03/25/18 07:30 Blood - Peripheral Venous Blood Culture - Preliminary NO GROWTH OBTAINED AFTER 72 HOURS, INCUBATION TO CONTINUE FOR 2 DAYS. 03/23/18 13:00 Blood - Peripheral Venous Blood Culture - Preliminary NO GROWTH OBTAINED AFTER 96 HOURS, INCUBATION TO CONTINUE FOR 1 DAYS. 03/23/18 13:00 Blood - Peripheral Venous Blood Culture - Preliminary NO GROWTH OBTAINED AFTER 96 HOURS, INCUBATION TO CONTINUE FOR 1 DAYS. 03/23/18 21:30 Urine - Urine Clean Catch Urine Culture - Final Contaminated: Please Repeat a/p fevers resolved, wbcs and platelets improved d/c rocephin, continue doxycycline continues to have diarrhea f/u stool studies hiv- continue meds
--- NOTE | 2018-03-28 14:26 | PN ---
Physical Exam: SUBJECTIVE: Patient seen and examined. She continues to have diarrhea. OBJECTIVE: Vital Signs Period Temp Pulse Resp BP Sys/Lewis Pulse Ox Last 24 Hr 98.0 F-98.9 F 73-82 18-20 136-148/68-80 95-97 GENERAL: The patient is awake, alert, and fully oriented, in no acute distress. LUNGS: Breath sounds equal, clear to auscultation bilaterally, no wheezes, no crackles, no accessory muscle use. HEART: Regular rate and rhythm, S1, S2 without murmur, rub or gallop. ABDOMEN: Obese, soft, nontender, nondistended, normoactive bowel sounds, no guarding, no rebound, no hepatosplenomegaly, no masses. EXTREMITIES: 2+ pulses, warm, well-perfused, no edema. Laboratory Results - last 24 hr 03/26/18 03/28/18 03/28/18 06:50 07:15 07:15 WBC 5.3 RBC 4.06 Hgb 12.3 Hct 36.2 MCV 89.1 MCH 30.4 MCHC 34.1 RDW 13.4 Plt Count 113 L D MPV 9.1 Sodium 141 Potassium 3.9 Chloride 105 Carbon Dioxide 26 Anion Gap 10 BUN 6 L Creatinine 0.7 Creat Clearance w eGFR > 60 Random Glucose 91 Calcium 8.0 L Lyme Screen IgG & IgM <0.91 Active Medications Generic Name Dose Route Start Last Admin Trade Name Freq PRN Reason Stop Dose Admin Acetaminophen 650 mg 03/24/18 01:22 03/26/18 06:23 Tylenol - PO 650 mg Q6H PRN Administration FEVER Acetaminophen 325 mg 03/25/18 15:30 03/28/18 09:50 Tylenol - PO 325 mg Q6H PRN Administration PAIN 4-6 Albuterol Sulfate 1 amp 03/25/18 10:00 Ventolin 0.083% Nebulizer Soln - NEB Q4H PRN SHORT OF BREATH/WHEEZING Arformoterol Tartrate 1 amp 03/25/18 20:00 03/28/18 07:51 Brovana (Restricted To Pulmonology/Resp) - NEB 1 amp RBID KEVIN Administration Fosamprenavir Calcium 1,400 mg 03/25/18 15:00 03/28/18 09:40 Lexiva - PO 1,400 mg DAILY KEVIN Administration Heparin Sodium (Porcine) 5,000 unit 03/25/18 22:00 03/28/18 05:31 Heparin - SQ 5,000 unit TID KEVIN Administration Sodium Chloride 1,000 mls @ 100 mls/hr 03/23/18 22:15 03/28/18 05:31 Normal Saline - IV Not Given ASDIR KEVIN Doxycycline Hyclate 100 mg/ 100 mls @ 50 mls/hr 03/25/18 22:00 03/28/18 09:40 Dextrose IVPB 50 mls/hr BID KEVIN Administration Lamivudine 300 mg 03/26/18 10:00 03/28/18 09:39 Epivir - PO 300 mg DAILY KEVIN Administration Ondansetron HCl 4 mg 03/23/18 22:10 03/28/18 07:53 Zofran Injection IVPUSH 4 mg Q6H PRN Administration NAUSEA Oxycodone HCl 5 mg 03/25/18 15:30 03/28/18 09:50 Roxicodone - PO 5 mg Q6H PRN Administration PAIN 4-6 Raltegravir 400 mg 03/25/18 22:00 03/28/18 09:40 Isentress - PO 400 mg BID KEVIN Administration Ritonavir 100 mg 03/25/18 15:00 03/28/18 09:39 Norvir - PO 100 mg DAILY KEVIN Administration Zolpidem Tartrate 10 mg 03/23/18 22:10 03/27/18 21:08 Ambien - PO 10 mg HS PRN Administration INSOMNIA ASSESSMENT/PLAN: This is a 57 year old woman with a history of HIV, hyperlipidemia who presented to the ED with fever, chills, nausea and diarrhea. 1. Acute gastroenteritis, possible pneumonia, possible viral syndrome, possible tick-borne illness - Afebrile - Diarrhea persists - Rocephin discontinued - Continue IV fluid - Continue Doxycycline - Oxygen to maintain saturation > 90% - Continue Brovana, albuterol nebs as needed - Blood cultures negative - C. difficile negative - Stool culture, Norovirus pending - Lyme Ab negative - Coxsackie Ab, Anaplasma PCR pending 2. HIV - Recent undetectable viral load, CD4 700 - Continue Norvir, Isentress, Epivir, Lexiva 3. Hyperlipidemia 4. RML lung nodule, 9 mm - Outpatient follow up 5. Obesity with BMI 31.1 Visit type - Emergency Visit Emergency Visit: Yes ED Registration Date: 03/25/18 Care time: The patient presented to the Emergency Department on the above date and was hospitalized for further evaluation of their emergent condition. - New Patient This patient is new to me today: No - Critical Care Critical Care patient: No - Discharge Referral Referred to [facility] No
[2018-03-28] MEDS: ZOLPIDEM TARTRATE 5 MG TABLET PO PRN (21:10)
[2018-03-29] MEDS: SODIUM CHLORIDE 1,000 ML IV SCH ×2 (00:57→10:15)
[2018-03-29] MEDS: HEPARIN NA (PORCINE) 5,000 UNITS/ML 1ML VIAL SQ SCH ×2 (05:34→14:37)
[2018-03-29] MEDS: ARFORMOTEROL TARTRATE 15 MCG/2 ML VIAL NEB SCH (07:49)
[2018-03-29] MEDS: oxyCODONE HCL 5 MG TABLET PO PRN ×2 (08:54→17:08)
[2018-03-29] MEDS: ACETAMINOPHEN 325 MG TABLET (FP) PO PRN ×2 (08:54→17:08)
[2018-03-29] MEDS ORDERED: PT OWN MED DRAWER 7, Y5N ONE (10:08)
[2018-03-29] MEDS: DOXYCYCLINE INJECTION 100 MG in DEXTROSE 5%-WATER 100 ML IVPB SCH (10:16)
[2018-03-29] MEDS: FOSAMPRENAVIR CALCIUM 700 MG TABLET PO SCH (10:17)
[2018-03-29] MEDS: RALTEGRAVIR POTASSIUM 400 MG TAB PO SCH (10:17)
[2018-03-29] MEDS: lamiVUDine 150 MG TABLET PO SCH (10:17)
[2018-03-29] MEDS: RITONAVIR 100 MG TABLET PO SCH (10:17)
--- NOTE | 2018-03-29 14:10 | PN ---
Progress Note, Physician History of Present Illness: Feeling better Temps down WBC improved C/O nausea, loose BMs No c/o rigors No chest pain/ dyspnea/ cough No dysuria - Current Medication List Current Medications: Active Medications Acetaminophen (Tylenol -) 650 mg PO Q6H PRN PRN Reason: FEVER Last Admin: 03/26/18 06:23 Dose: 650 mg Acetaminophen (Tylenol -) 325 mg PO Q6H PRN PRN Reason: PAIN 4-6 Last Admin: 03/29/18 08:54 Dose: 325 mg Albuterol Sulfate (Ventolin 0.083% Nebulizer Soln -) 1 amp NEB Q4H PRN PRN Reason: SHORT OF BREATH/WHEEZING Arformoterol Tartrate (Brovana (Restricted To Pulmonology/Resp) -) 1 amp NEB RBID [facility] Last Admin: 03/29/18 07:49 Dose: 1 amp Fosamprenavir Calcium (Lexiva -) 1,400 mg PO DAILY [facility] Last Admin: 03/29/18 10:17 Dose: 1,400 mg Heparin Sodium (Porcine) (Heparin -) 5,000 unit SQ TID [facility] Last Admin: 03/29/18 05:34 Dose: 5,000 unit Sodium Chloride (Normal Saline -) 1,000 mls @ 100 mls/hr IV ASDIR [facility] Last Admin: 03/29/18 10:15 Dose: 100 mls/hr Doxycycline Hyclate 100 mg/ (Dextrose) 100 mls @ 50 mls/hr IVPB BID [facility] Last Admin: 03/29/18 10:16 Dose: 50 mls/hr Lamivudine (Epivir -) 300 mg PO DAILY [facility] Last Admin: 03/29/18 10:17 Dose: 300 mg Ondansetron HCl (Zofran Injection) 4 mg IVPUSH Q6H PRN PRN Reason: NAUSEA Last Admin: 03/28/18 16:40 Dose: 4 mg Oxycodone HCl (Roxicodone -) 5 mg PO Q6H PRN PRN Reason: PAIN LEVEL 4 - 6 Last Admin: 03/29/18 08:54 Dose: 5 mg Raltegravir (Isentress -) 400 mg PO BID [facility] Last Admin: 03/29/18 10:17 Dose: 400 mg Ritonavir (Norvir -) 100 mg PO DAILY [facility] Last Admin: 03/29/18 10:17 Dose: 100 mg Zolpidem Tartrate (Ambien -) 10 mg PO HS PRN PRN Reason: INSOMNIA Last Admin: 03/28/18 21:10 Dose: 10 mg - Objective Vital Signs: Vital Signs Temperature 98.6 F 03/29/18 08:50 Pulse Rate 76 03/29/18 08:50 Respiratory Rate 18 03/29/18 08:50 Blood Pressure 142/86 03/29/18 08:50 O2 Sat by Pulse Oximetry (%) 96 03/29/18 08:54 Constitutional: Yes: No Distress Eyes: Yes: Conjunctiva Clear Cardiovascular: Yes: Regular Rate and Rhythm, S1, S2 Respiratory: Yes: CTA Bilaterally Gastrointestinal: Yes: Normal Bowel Sounds, Soft. No: Tenderness Edema: No Labs: CBC, BMP 03/28/18 07:15 03/28/18 07:15 INR, PTT INR 1.04 (0.83-1.09) 03/23/18 13:00 Assessment/Plan Fever/ leukopenia/ thrombocytopenia ? viral illness ? tick-related + exposure to with coxsackie virus] + tick exposure Clinically improved Gastroenteritis HIV/AIDS stable tick serology pending OK for discharge on doxycycline 100mg po bid x 10d Will follow up in office
--- NOTE | 2018-03-29 14:21 | PN ---
Progress Note, Physician History of Present Illness: PULMONARY ALERT,NO DISTRESS,-CP,-SOB,-COUGH - Current Medication List Current Medications: Active Medications Acetaminophen (Tylenol -) 650 mg PO Q6H PRN PRN Reason: FEVER Last Admin: 03/26/18 06:23 Dose: 650 mg Acetaminophen (Tylenol -) 325 mg PO Q6H PRN PRN Reason: PAIN 4-6 Last Admin: 03/29/18 08:54 Dose: 325 mg Albuterol Sulfate (Ventolin 0.083% Nebulizer Soln -) 1 amp NEB Q4H PRN PRN Reason: SHORT OF BREATH/WHEEZING Arformoterol Tartrate (Brovana (Restricted To Pulmonology/Resp) -) 1 amp NEB RBID [facility] Last Admin: 03/29/18 07:49 Dose: 1 amp Fosamprenavir Calcium (Lexiva -) 1,400 mg PO DAILY [facility] Last Admin: 03/29/18 10:17 Dose: 1,400 mg Heparin Sodium (Porcine) (Heparin -) 5,000 unit SQ TID [facility] Last Admin: 03/29/18 05:34 Dose: 5,000 unit Sodium Chloride (Normal Saline -) 1,000 mls @ 100 mls/hr IV ASDIR [facility] Last Admin: 03/29/18 10:15 Dose: 100 mls/hr Doxycycline Hyclate 100 mg/ (Dextrose) 100 mls @ 50 mls/hr IVPB BID [facility] Last Admin: 03/29/18 10:16 Dose: 50 mls/hr Lamivudine (Epivir -) 300 mg PO DAILY [facility] Last Admin: 03/29/18 10:17 Dose: 300 mg Ondansetron HCl (Zofran Injection) 4 mg IVPUSH Q6H PRN PRN Reason: NAUSEA Last Admin: 03/28/18 16:40 Dose: 4 mg Oxycodone HCl (Roxicodone -) 5 mg PO Q6H PRN PRN Reason: PAIN LEVEL 4 - 6 Last Admin: 03/29/18 08:54 Dose: 5 mg Raltegravir (Isentress -) 400 mg PO BID [facility] Last Admin: 03/29/18 10:17 Dose: 400 mg Ritonavir (Norvir -) 100 mg PO DAILY [facility] Last Admin: 03/29/18 10:17 Dose: 100 mg Zolpidem Tartrate (Ambien -) 10 mg PO HS PRN PRN Reason: INSOMNIA Last Admin: 03/28/18 21:10 Dose: 10 mg - Objective Vital Signs: Vital Signs Temperature 98.6 F 03/29/18 08:50 Pulse Rate 76 03/29/18 08:50 Respiratory Rate 18 03/29/18 08:50 Blood Pressure 142/86 03/29/18 08:50 O2 Sat by Pulse Oximetry (%) 96 03/29/18 08:54 Constitutional: Yes: Well Nourished Eyes: Yes: WNL HENT: Yes: WNL Neck: Yes: WNL Cardiovascular: Yes: Regular Rate and Rhythm, S1, S2 Respiratory: Yes: CTA Bilaterally Gastrointestinal: Yes: Normal Bowel Sounds, Soft Extremities: Yes: WNL Edema: No Labs: CBC, BMP 03/28/18 07:15 Assessment/Plan - Problems (1) HIV disease Code(s): B20 - HUMAN IMMUNODEFICIENCY VIRUS [HIV] DISEASE (2) Smoker Code(s): F17.200 - NICOTINE DEPENDENCE, UNSPECIFIED, UNCOMPLICATED (3) Lung nodule, multiple Code(s): R91.8 - OTHER NONSPECIFIC ABNORMAL FINDING OF LUNG FIELD (4) Abdominal pain Code(s): R10.9 - UNSPECIFIED ABDOMINAL PAIN (5) Diarrhea Code(s): R19.7 - DIARRHEA, UNSPECIFIED (6) Fever Code(s): R50.9 - FEVER, UNSPECIFIED Qualifiers: Fever type: unspecified Qualified Code(s): R50.9 - Fever, unspecified Assessment/Plan No smoking PFTs an outpatient Patient noted to have multiple nodules on CT imaging from 2005. The same lesion is noted in 2005 which measured 7.2. This is most likely pleural scarring. Discussed findings with the patient. Can make further decisions as an outpatient, but conservative management best course given the 12 year relative stability. VTE prophylaxis Nasal O2 PRN BD TX Standing and PRN DR DALLAS
[2018-03-29 14:36] VITALS: BP 124/55; PULSE 77; TEMP 99
--- NOTE | 2018-03-29 16:13 | PN ---
Teaching Attending Note Name of Resident: Juidt Flowers ATTENDING PHYSICIAN STATEMENT I saw and evaluated the patient. I reviewed the resident's note and discussed the case with the resident. I agree with the resident's findings and plan as documented. SUBJECTIVE: Patient has no complaints. Diarrhea is improving. OBJECTIVE: Vital Signs Period Temp Pulse Resp BP Sys/Lewis Pulse Ox Last 24 Hr 98.4 F-99.0 F 73-79 18-21 124-145/55-86 95-96 HEART: S1S2, RRR LUNGS: Clear ABDOMEN: Obese, soft, non-tender, non-distended, normal BS EXTREMITIES: No edema Laboratory Results - last 24 hr 03/26/18 06:50 Lyme Antibody Value No Result Required. Current Medications Generic Name Dose Route Start Last Admin Trade Name Freq PRN Reason Stop Dose Admin Acetaminophen 650 mg 03/24/18 01:22 03/26/18 06:23 Tylenol - PO 650 mg Q6H PRN Administration FEVER Acetaminophen 325 mg 03/25/18 15:30 03/29/18 08:54 Tylenol - PO 325 mg Q6H PRN Administration PAIN 4-6 Albuterol Sulfate 1 amp 03/25/18 10:00 Ventolin 0.083% Nebulizer Soln - NEB Q4H PRN SHORT OF BREATH/WHEEZING Arformoterol Tartrate 1 amp 03/25/18 20:00 03/29/18 07:49 Brovana (Restricted To Pulmonology/Resp) - NEB 1 amp RBID KEVIN Administration Fosamprenavir Calcium 1,400 mg 03/25/18 15:00 03/29/18 10:17 Lexiva - PO 1,400 mg DAILY KEVIN Administration Heparin Sodium (Porcine) 5,000 unit 03/25/18 22:00 03/29/18 14:37 Heparin - SQ 5,000 unit TID KEVIN Administration Sodium Chloride 1,000 mls @ 100 mls/hr 03/23/18 22:15 03/29/18 10:15 Normal Saline - IV 100 mls/hr ASDIR KEVIN Administration Doxycycline Hyclate 100 mg/ 100 mls @ 50 mls/hr 03/25/18 22:00 03/29/18 10:16 Dextrose IVPB 50 mls/hr BID KEVIN Administration Lamivudine 300 mg 03/26/18 10:00 03/29/18 10:17 Epivir - PO 300 mg DAILY [facility] Administration Ondansetron HCl 4 mg 03/23/18 22:10 03/28/18 16:40 Zofran Injection IVPUSH 4 mg Q6H PRN Administration NAUSEA Oxycodone HCl 5 mg 03/28/18 16:21 03/29/18 08:54 Roxicodone - PO 5 mg Q6H PRN Administration PAIN LEVEL 4 - 6 Raltegravir 400 mg 03/25/18 22:00 03/29/18 10:17 Isentress - PO 400 mg BID KEVIN Administration Ritonavir 100 mg 03/25/18 15:00 03/29/18 10:17 Norvir - PO 100 mg DAILY KEVIN Administration Zolpidem Tartrate 10 mg 03/23/18 22:10 03/28/18 21:10 Ambien - PO 10 mg HS PRN Administration INSOMNIA ASSESSMENT AND PLAN: This is a 57 year old woman with a history of HIV, hyperlipidemia who presented to the ED with fever, chills, nausea and diarrhea. 1. Acute gastroenteritis, possible pneumonia, possible viral syndrome, possible tick-borne illness - Afebrile - Diarrhea persists - Rocephin discontinued - Continue IV fluid - Continue Doxycycline - Oxygen to maintain saturation > 90% - Continue Brovana, albuterol nebs as needed - Blood cultures negative - C. difficile negative - Stool culture growing yeast-like organism - Stool Norovirus pending - Lyme Ab negative - Coxsackie Ab, Anaplasma PCR pending 2. HIV - Recent undetectable viral load, CD4 700 - Continue Norvir, Isentress, Epivir, Lexiva 3. Hyperlipidemia 4. RML lung nodule, 9 mm - Outpatient follow up 5. Obesity with BMI 31.3 6. Disposition - Ok for discharge home on Doxycycline with ID follow p
--- NOTE | 2018-03-29 16:23 | DS ---
Physical Exam: SUBJECTIVE: Patient is 57 y/o female with a past medical history of HIV and HLD who presents with diarrhea likely to gastroenteritis. Patient continues to have episodes of diarrhea. No other acute complaints. OBJECTIVE: Vital Signs Vital Signs Temperature 99.0 F 03/29/18 14:35 Pulse Rate 77 03/29/18 14:35 Respiratory Rate 18 03/29/18 08:50 Blood Pressure 124/55 03/29/18 14:35 O2 Sat by Pulse Oximetry (%) 96 03/29/18 08:54 PHYSICAL EXAM GENERAL: The patient is awake, alert, and fully oriented, in no acute distress. LUNGS: mild expiratory wheezing HEART: Regular rate and rhythm, S1, S2 ABDOMEN: Soft, nontender, nondistended, normoactive bowel sounds EXTREMITIES: 2+ pulses, warm, well-perfused, no edema. PSYCH: Normal mood, normal affect. SKIN: Warm, dry, normal turgor, no rashes or lesions noted LABS Laboratory Results - last 24 hr 03/26/18 06:50 Lyme Antibody Value No Result Required. HOSPITAL COURSE: Date of Admission:03/25/18 Patient is 57 y/o female with a past medical history of HIV and HLD who presents with diarrhea. Patient presented with history of undetectable viral load. Patient was started on Ceftriaxone 2gm. 2nd day of admission patient began developing fevers and was started on Doxycycline. Patients cultures of stool, blood, and urine grew no organisms. Her diarrhea resumed after the doxycyline was started, but is thought to be due to antibiotic side effect. Patients vitals remained stable and she will continue ten days of Doxycycline as an outpatient. Patient will follow up with Dr. Gomez for pending serologies. Patient has a previous history of a pulmonary nodule on CT. On repeat CT scan patient had similar nodules. Pulmonolgy, Dr. Michaels, monitored these lesions and compared to old studies they are stable, lesions suspected to be due to pulmonary scarring. Patient can follow up as needed to monitor these lesions. Patients stable and discharged home. ABD CT: R middle lobe nodule, splenomegaly, no evidence of colitios Date of Discharge: 03/29/18 Minutes to complete discharge: 35 Discharge Summary Reason For Visit: FEVER/HIV Current Active Problems Diarrhea (Acute) HIV disease (Chronic) Lung nodule, multiple (Chronic) Smoker (Chronic) Condition: Improved - Instructions Diet, Activity, Other Instructions: You presented to the hospital for fevers. This was due to an infection and we treated you with antibiotics. You will continue to take Doxycycline 100 mg twice a day for 10 days to treat the infection. You had a CT scan that showed a lung nodule. On comparison to old CT scans you had the same lung nodule in 2005. At this time we believe the lung nodule is stable and there is nothing to be done. You can follow up with topper press operator, Dr. Michaels, for any further management. Please continue to take your home medications as prescribed. Please follow up with Dr. Gomez. Please follow up with your primary care doctor within the week. Please return to the ED if you have worsening symptoms, headache, chest pain, diarrhea, nausea, or vomiting. Referrals: Nabil Gomez MD [Primary Care Provider] - Doe Michaels MD [Staff Physician] - Disposition: HOME - Home Medications Comprehensive Discharge Medication List: Ambulatory Orders Atorvastatin Ca [Lipitor] 10 mg PO HS 03/23/18 Fosamprenavir Calcium [Lexiva] 700 mg PO BID 03/23/18 Lamivudine 300 mg PO DAILY 03/23/18 Mirtazapine 15 mg PO HS 03/23/18 Raltegravir [Isentress] 400 mg PO BID 03/23/18 Ritonavir [Norvir -] 100 mg PO DAILY 03/23/18 Zolpidem Tartrate 10 mg PO HS 03/23/18 Doxycycline Hyclate [Vibramycin] 100 mg PO BID #20 capsule 03/29/18 This patient is new to me today: No Emergency Visit: No Critical Care patient: No - Discharge Referral Referred to [facility] No
[2018-03-29 16:29] LABS: COXSACKIE A16 IGM Negative titer (Neg:<1:10); COXSACKIE A24 IGM Negative titer (Neg:<1:10); COXSACKIE A7 IGM Negative titer (Neg:<1:10); COXSACKIE A9 IGM Negative titer (Neg:<1:10)
== END 2018-03-29 18:18 | disposition home or self-care (01) | DRG 977 ==
LOC: JER 11:07 → J6S 22:47 → OBSVTOIN 03-25 15:38
PROVIDERS: ADMIT Internal Medicine; ATTEND Internal Medicine
DX: K52.9 Noninfective gastroenteritis and colitis, unspecified (principal); B20 Human immunodeficiency virus [HIV] disease; R50.9 Fever, unspecified; E78.5 Hyperlipidemia, unspecified; R16.1 Splenomegaly, not elsewhere classified; F17.210 Nicotine dependence, cigarettes, uncomplicated; R91.8 Other nonspecific abnormal finding of lung field; R10.9 Unspecified abdominal pain; D72.819 Decreased white blood cell count, unspecified; D69.6 Thrombocytopenia, unspecified; G47.9 Sleep disorder, unspecified; B34.9 Viral infection, unspecified; E66.9 Obesity, unspecified; Z68.31 Body mass index [BMI] 31.0-31.9, adult
CPT/HCPCS: 36415; 71045-TC-FY; 74177-TC; 80048; 80053; 81003; 81015; 82803; 82930; 83605; 83690; 83735; 84100; 84484; 85025; 85027; 85610; 85730; 86618; 86658; 87040; 87045; 87046; 87086; 87177; 87205; 87209; 87324; 87449; 87798; 93005; 93010; 94640; 99283-25; G0378; J0131; J1644; J7030

== ENCOUNTER 2023-04-24 13:05 | Inpatient (IN) | payer OTHER, BC ==
[2023-04-24 13:12] VITALS: BMI 27.4
[2023-04-24] MEDS ORDERED: LIDOCAINE 5% TOPICAL PATCH ONE (13:26)
[2023-04-24] MEDS ORDERED: SODIUM CHLORIDE 1,000 ML IV STA (14:21)
[2023-04-24] MEDS ORDERED: diazePAM CARPU-JECT 10 MG/2 ML DISP.SYRIN IVPUSH ONE ×4 (14:22→19:07)
[2023-04-24] MEDS ORDERED: diazePAM CARPU-JECT 10 MG/2 ML DISP.SYRIN ONE ×3 (14:22→18:52)
[2023-04-24] MEDS ORDERED: ONDANSETRON 4 MG/2 ML VIAL ONE ×2 (14:23→16:25)
[2023-04-24] MEDS ORDERED: ONDANSETRON 4 MG/2 ML VIAL IVPUSH ONE ×2 (14:23→16:25)
[2023-04-24] MEDS ORDERED: THIAMINE HCL 200 MG/2 ML VIAL IVPB ONE (14:23)
[2023-04-24] MEDS ORDERED: THIAMINE HCL 200 MG/2 ML VIAL ONE (14:23)
[2023-04-24 15:22] LABS: BASO % 0.2 % (0-2.0); EOS % 0.3 % (0-4.5); HEMATOCRIT 45.5 % (32.4-45.2); HEMOGLOBIN 15.3 GM/dL (10.7-15.3); LYMPH % 14.3 % (8-40); MCH 30.5 pg (25.7-33.7); MCHC 33.6 g/dl (32.0-36.0); MEAN CELL VOLUME 90.8 fl (80-96); MEAN PLT VOLUME 8.3 fl (7.5-11.1); NEUT % 79.2 % (42.8-82.8); PLATELET COUNT 204 10^3/uL (134-434); RBC 5.01 M/mm3 (3.60-5.2); RDW 13.9 % (11.6-15.6); WHITE BLOOD COUNT 9.2 K/mm3 (4.0-10.0)
[2023-04-24 16:09] LABS: CALCIUM 9.5 mg/dL (8.5-10.1)
[2023-04-24 16:10] LABS: ALBUMIN 4.6 g/dl (3.4-5.0); BLOOD UREA NITROGEN 10.2 mg/dL (7-18); MAGNESIUM 2.3 mg/dL (1.8-2.4)
[2023-04-24 16:14] LABS: BILIRUBIN,TOTAL 0.9 mg/dL (0.2-1); TOT PROT 8.2 g/dl (6.4-8.2)
[2023-04-24] MEDS ORDERED: FAMOTIDINE 20 MG/50 ML IVPB 20 MG/50 ML MG IVPB ONE (18:53)
[2023-04-24] MEDS ORDERED: FAMOTIDINE 20 MG/50 ML IVPB 20 MG/50 ML MG IVPB SCH ×2 (19:09→22:00)
[2023-04-24] MEDS: FAMOTIDINE 20 MG/50 ML IVPB 20 MG/50 ML MG IVPB SCH ×2 (19:20→22:58)
[2023-04-24] MEDS ORDERED: LORazepam 2 MG/ML SDV VIAL IVPUSH ONE (21:32)
[2023-04-24] MEDS ORDERED: ONDANSETRON 4 MG/2 ML VIAL IVPUSH PRN (21:41)
[2023-04-24] MEDS ORDERED: chlordiazePOXIDE HCL 25 MG CAPSULE PO PRN ×2 (21:43→22:07)
[2023-04-24] MEDS ORDERED: FOLIC ACID INJECTION - 1 MG, THIAMINE HCL 100 MG, MULTIVIT INJECTION ADULT 10 ML in SOD... IVPB ONE (21:48)
[2023-04-24] MEDS ORDERED: chlordiazePOXIDE HCL 25 MG CAPSULE ONE (21:50)
[2023-04-24] MEDS: chlordiazePOXIDE HCL 25 MG CAPSULE PO SCH ×2 (21:59→22:57)
[2023-04-24] MEDS ORDERED: hydrALAZINE HCL 20 MG/ML VIAL IVPUSH PRN (22:02)
[2023-04-24] MEDS: THIAMINE HCL 200 MG/2 ML VIAL IVPB SCH (22:57)
[2023-04-24] MEDS: ATORVASTATIN CA 10 MG TABLET (FP) PO SCH (22:57)
[2023-04-24] MEDS: LACTATED RINGERS SOLUTION 1,000 ML IV SCH (22:59)
[2023-04-25] MEDS: chlordiazePOXIDE HCL 25 MG CAPSULE PO SCH ×5 (05:43→22:11)
[2023-04-25] MEDS ORDERED: FOLIC ACID INJECTION - 1 MG, THIAMINE HCL 100 MG, MULTIVIT INJECTION ADULT 10 ML in SOD... IVPB ONE (06:00)
[2023-04-25 08:29] LABS: HEMATOCRIT 41.2 % (32.4-45.2); HEMOGLOBIN 13.6 GM/dL (10.7-15.3); MCH 30.5 pg (25.7-33.7); MCHC 33.1 g/dl (32.0-36.0); MEAN CELL VOLUME 92.2 fl (80-96); MEAN PLT VOLUME 8.9 fl (7.5-11.1); PLATELET COUNT 149 10^3/uL (134-434); RBC 4.47 M/mm3 (3.60-5.2); RDW 13.8 % (11.6-15.6); WHITE BLOOD COUNT 8.7 K/mm3 (4.0-10.0)
[2023-04-25] MEDS ORDERED: chlordiazePOXIDE HCL 25 MG CAPSULE PO PRN (08:29)
[2023-04-25 08:36] LABS: CHLORIDE 106 mmol/L (98-107); POTASSIUM 3.5 mmol/L (3.5-5.1); SODIUM 141 mmol/L (136-145)
[2023-04-25 08:38] LABS: CALCIUM 8.2 mg/dL (8.5-10.1)
[2023-04-25 08:39] LABS: ANION GAP 6 MMOL/L (8-16); BLOOD UREA NITROGEN 8.5 mg/dL (7-18); CO2 29 mmol/L (21-32); GLUCOSE,RANDOM 90 mg/dL (74-106); MAGNESIUM 1.9 mg/dL (1.8-2.4)
[2023-04-25 08:42] LABS: CREATININE 0.8 mg/dL (0.55-1.3); PHOSPHOROUS 4.3 mg/dL (2.5-4.9); SGOT/AST 16 U/L (15-37); SGPT/ALT 24 U/L (13-61)
[2023-04-25 08:44] LABS: BILIRUBIN,TOTAL 0.5 mg/dL (0.2-1); TOT PROT 6.6 g/dl (6.4-8.2)
[2023-04-25 08:45] LABS: ALK PHOS 75 U/L (45-117)
[2023-04-25 08:52] LABS: ALBUMIN 3.6 g/dl (3.4-5.0)
[2023-04-25] MEDS: THIAMINE HCL 200 MG/2 ML VIAL IVPB SCH (09:25)
[2023-04-25] MEDS: ENOXAPARIN NA (PORCINE) 40 MG/0.4 ML DISP.SYRIN SQ SCH (09:25)
[2023-04-25] MEDS: FAMOTIDINE 20 MG/50 ML IVPB 20 MG/50 ML MG IVPB SCH ×2 (09:26→22:11)
[2023-04-25] MEDS: FOLIC ACID 1 MG TABLET (FP) PO SCH (09:26)
[2023-04-25] MEDS: LACTATED RINGERS SOLUTION 1,000 ML IV SCH ×2 (15:04→22:15)
[2023-04-25 18:56] LABS: METHADONE, UR NEGATIVE (NEGATIVE); OPIATES, URI NEGATIVE (NEGATIVE); PHENCYCLIDINE,URINE NEGATIVE (NEGATIVE); URINE BARBITURATES NEGATIVE (NEGATIVE)
[2023-04-25 18:57] LABS: COCAINE, UR NEGATIVE (NEGATIVE); URINE AMPHETAMINES NEGATIVE (NEGATIVE)
[2023-04-25 19:06] LABS: URINE BENZODIAZEPINES POSITIVE (NEGATIVE)
[2023-04-25] MEDS: ATORVASTATIN CA 10 MG TABLET (FP) PO SCH (22:12)
[2023-04-26] MEDS ORDERED: chlordiazePOXIDE HCL 25 MG CAPSULE PO SCH (05:00)
[2023-04-26] MEDS: chlordiazePOXIDE HCL 25 MG CAPSULE PO SCH ×4 (05:45→22:00)
[2023-04-26 08:47] LABS: POTASSIUM 3.7 mmol/L (3.5-5.1)
[2023-04-26 08:48] LABS: CALCIUM 8.5 mg/dL (8.5-10.1)
[2023-04-26 08:49] LABS: BLOOD UREA NITROGEN 11.2 mg/dL (7-18)
[2023-04-26 08:52] LABS: PHOSPHOROUS 3.4 mg/dL (2.5-4.9)
[2023-04-26] MEDS: FOLIC ACID 1 MG TABLET (FP) PO SCH (09:26)
[2023-04-26] MEDS: FAMOTIDINE 20 MG/50 ML IVPB 20 MG/50 ML MG IVPB SCH ×2 (09:26→21:28)
[2023-04-26] MEDS: THIAMINE HCL 200 MG/2 ML VIAL IVPB SCH (09:26)
[2023-04-26] MEDS: ENOXAPARIN NA (PORCINE) 40 MG/0.4 ML DISP.SYRIN SQ SCH (09:26)
[2023-04-26] MEDS: ATORVASTATIN CA 10 MG TABLET (FP) PO SCH (21:28)
[2023-04-26] MEDS: LORazepam 2 MG/ML SDV VIAL IVPUSH PRN (22:54)
[2023-04-27] MEDS ORDERED: chlordiazePOXIDE HCL 10 MG CAPSULE PO PRN ×2
[2023-04-27] MEDS ORDERED: chlordiazePOXIDE HCL 10 MG CAPSULE PO SCH (05:00)
[2023-04-27] MEDS: chlordiazePOXIDE HCL 10 MG CAPSULE PO SCH ×4 (05:26→23:21)
[2023-04-27] MEDS: LORazepam 2 MG/ML SDV VIAL IVPUSH PRN (07:26)
[2023-04-27] MEDS: ENOXAPARIN NA (PORCINE) 40 MG/0.4 ML DISP.SYRIN SQ SCH (09:09)
[2023-04-27] MEDS: THIAMINE HCL 200 MG/2 ML VIAL IVPB SCH (09:09)
[2023-04-27] MEDS: FAMOTIDINE 20 MG/50 ML IVPB 20 MG/50 ML MG IVPB SCH ×2 (09:09→22:08)
[2023-04-27] MEDS: FOLIC ACID 1 MG TABLET (FP) PO SCH (09:09)
[2023-04-27 09:23] LABS: POTASSIUM 3.8 mmol/L (3.5-5.1)
[2023-04-27 09:26] LABS: BLOOD UREA NITROGEN 9.5 mg/dL (7-18); CALCIUM 8.4 mg/dL (8.5-10.1); MAGNESIUM 1.9 mg/dL (1.8-2.4)
[2023-04-27] MEDS ORDERED: NICOTINE 14 MG/24 HOURS TOPICAL PATCH TD SCH (10:00)
[2023-04-27] MEDS: ATORVASTATIN CA 10 MG TABLET (FP) PO SCH (22:07)
[2023-04-27] MEDS: MELATONIN 5 MG TABLETS PO PRN (23:21)
[2023-04-28] MEDS ORDERED: chlordiazePOXIDE HCL 10 MG CAPSULE PO SCH (05:00)
[2023-04-28] MEDS: chlordiazePOXIDE HCL 10 MG CAPSULE PO SCH ×2 (05:50→17:58)
[2023-04-28 09:25] LABS: BASO % 0.3 % (0-2.0); EOS % 2.3 % (0-4.5); HEMATOCRIT 38.6 % (32.4-45.2); LYMPH % 25.4 % (8-40); MCH 30.7 pg (25.7-33.7); MCHC 33.7 g/dl (32.0-36.0); MEAN CELL VOLUME 90.9 fl (80-96); MEAN PLT VOLUME 8.1 fl (7.5-11.1); MONO % 10.2 % (3.8-10.2); NEUT % 61.8 % (42.8-82.8); PLATELET COUNT 142 10^3/uL (134-434); RBC 4.25 M/mm3 (3.60-5.2); RDW 13.7 % (11.6-15.6); WHITE BLOOD COUNT 4.9 K/mm3 (4.0-10.0)
[2023-04-28 09:49] LABS: POTASSIUM 3.8 mmol/L (3.5-5.1)
[2023-04-28 09:54] LABS: CALCIUM 8.2 mg/dL (8.5-10.1)
[2023-04-28 09:55] LABS: ALBUMIN 3.5 g/dl (3.4-5.0); BLOOD UREA NITROGEN 11.9 mg/dL (7-18)
[2023-04-28 09:56] LABS: PHOSPHOROUS 4.4 mg/dL (2.5-4.9)
[2023-04-28 09:58] LABS: BILIRUBIN,TOTAL 0.4 mg/dL (0.2-1); CREATININE 1.1 mg/dL (0.55-1.3); TOT PROT 6.4 g/dl (6.4-8.2)
[2023-04-28] MEDS ORDERED: NICOTINE 21 MG/24 HOURS TOPICAL PATCH TD SCH (10:00)
[2023-04-28] MEDS: NICOTINE 21 MG/24 HOURS TOPICAL PATCH TD SCH (11:24)
[2023-04-28] MEDS: FAMOTIDINE 20 MG/50 ML IVPB 20 MG/50 ML MG IVPB SCH ×2 (11:25→21:21)
[2023-04-28] MEDS: ENOXAPARIN NA (PORCINE) 40 MG/0.4 ML DISP.SYRIN SQ SCH (11:25)
[2023-04-28] MEDS: FOLIC ACID 1 MG TABLET (FP) PO SCH (11:26)
[2023-04-28] MEDS: THIAMINE HCL 200 MG/2 ML VIAL IVPB SCH (11:30)
[2023-04-28] MEDS ORDERED: amLODIPine BESYLATE 5 MG TABLET (FP) PO SCH (12:30)
[2023-04-28] MEDS: MELATONIN 5 MG TABLETS PO PRN (21:22)
[2023-04-28] MEDS: ATORVASTATIN CA 10 MG TABLET (FP) PO SCH (21:22)
[2023-04-29 00:41] VITALS: RESP 18
[2023-04-29] MEDS ORDERED: chlordiazePOXIDE HCL 10 MG CAPSULE PO ONE ×2 (05:00)
[2023-04-29 09:06] VITALS: BP 155/92; PULSE 79; TEMP 97.6
[2023-04-29 09:08] LABS: BASO % 0.3 % (0-2.0); EOS % 2.4 % (0-4.5); HEMATOCRIT 39.2 % (32.4-45.2); HEMOGLOBIN 12.9 GM/dL (10.7-15.3); LYMPH % 21.7 % (8-40); MCH 30.5 pg (25.7-33.7); MEAN CELL VOLUME 92.3 fl (80-96); MEAN PLT VOLUME 8.6 fl (7.5-11.1); MONO % 8.8 % (3.8-10.2); NEUT % 66.8 % (42.8-82.8); PLATELET COUNT 142 10^3/uL (134-434); RBC 4.25 M/mm3 (3.60-5.2); RDW 13.6 % (11.6-15.6)
[2023-04-29 09:36] LABS: POTASSIUM 3.8 mmol/L (3.5-5.1)
[2023-04-29 09:44] LABS: ALBUMIN 3.5 g/dl (3.4-5.0); BLOOD UREA NITROGEN 8.3 mg/dL (7-18); CALCIUM 8.4 mg/dL (8.5-10.1); MAGNESIUM 2.1 mg/dL (1.8-2.4)
[2023-04-29 09:47] LABS: PHOSPHOROUS 3.7 mg/dL (2.5-4.9)
[2023-04-29 09:49] LABS: BILIRUBIN,TOTAL 0.5 mg/dL (0.2-1); TOT PROT 6.5 g/dl (6.4-8.2)
[2023-04-29] MEDS ORDERED: amLODIPine BESYLATE 5 MG TABLET (FP) PO SCH (10:00)
[2023-04-29] MEDS: ENOXAPARIN NA (PORCINE) 40 MG/0.4 ML DISP.SYRIN SQ SCH (10:17)
[2023-04-29] MEDS: FOLIC ACID 1 MG TABLET (FP) PO SCH (10:18)
[2023-04-29] MEDS: NICOTINE 21 MG/24 HOURS TOPICAL PATCH TD SCH (10:18)
[2023-04-29] MEDS: THIAMINE HCL 200 MG/2 ML VIAL IVPB SCH (10:18)
[2023-04-29] MEDS: FAMOTIDINE 20 MG/50 ML IVPB 20 MG/50 ML MG IVPB SCH (10:19)
== END 2023-04-29 13:36 | disposition home or self-care (01) | DRG 897 ==
LOC: JER 13:05 → JERBED 20:53 → OBSVTOIN 21:37 → J4S 22:14
PROVIDERS: ADMIT Internal Medicine; ATTEND Internal Medicine
PROC: HZ2ZZZZ Detoxification Services for Substance Abuse Treatment (ICD-10-PCS; principal; 2023-04-24)
DX: F10.239 Alcohol dependence with withdrawal, unspecified (principal); R51.9 Headache, unspecified; Z21 Asymptomatic human immunodeficiency virus [HIV] infection status; E78.5 Hyperlipidemia, unspecified; G47.09 Other insomnia; F17.210 Nicotine dependence, cigarettes, uncomplicated; R11.2 Nausea with vomiting, unspecified; I10 Essential (primary) hypertension; R00.0 Tachycardia, unspecified; G47.00 Insomnia, unspecified; I16.0 Hypertensive urgency; K52.9 Noninfective gastroenteritis and colitis, unspecified; K57.90 Diverticulosis of intestine, part unspecified, without perforation or abscess without bleeding
CPT/HCPCS: 0241U-QW; 36415; 70450-TC; 71045-TC-FY; 74176-TC; 80048; 80053; 80307; 83605; 83690; 83735; 84100; 84484; 85025; 85027; 86359; 86360; 93005; 93010; 97116-GP; 97161-GP; 99285-25; G0378

== ENCOUNTER 2023-06-05 04:52 | Day surgery (SDC) | payer OTHER, BC ==
[2023-06-01 12:13] VITALS: BMI 27.4
[2023-06-05 13:11] VITALS: BP 107/55; PULSE 68; RESP 20; TEMP 97.6
== END 2023-06-05 13:11 | disposition home or self-care (01) ==
LOC: JASU-ENDO 04:52
PROVIDERS: ATTEND Student in an Organized Health Care Education/Training Program
PROC: 0DBP8ZX Excision of Rectum, Via Natural or Artificial Opening Endoscopic, Diagnostic (ICD-10-PCS; principal; 2023-06-05 11:45)
DX: D12.8 Benign neoplasm of rectum (principal); K57.30 Diverticulosis of large intestine without perforation or abscess without bleeding
CPT/HCPCS: 88305-TC

== ENCOUNTER 2023-12-12 17:01 | Inpatient (IN) | payer OTHER, BC ==
[2023-12-12] MEDS ORDERED: ONDANSETRON 4 MG/2 ML VIAL ONE ×2 (17:11→17:42)
[2023-12-12] MEDS: SODIUM CHLORIDE 0.9% 500 ML INFUS.BAG IV ONE (17:29)
[2023-12-12] MEDS: ONDANSETRON 4 MG/2 ML VIAL IVPUSH ONE (17:29)
[2023-12-12 17:37] LABS: BASO % 0.5 % (0-2.0); EOS % 0.1 % (0-4.5); HEMATOCRIT 45.6 % (32.4-45.2); HEMOGLOBIN 15.5 GM/dL (10.7-15.3); MCH 31.5 pg (25.7-33.7); MEAN CELL VOLUME 92.7 fl (80-96); MEAN PLT VOLUME 8.4 fl (7.5-11.1); MONO % 5.2 % (3.8-10.2); NEUT % 80.2 % (42.8-82.8); PLATELET COUNT 243 10^3/uL (134-434); RBC 4.92 M/mm3 (3.60-5.2); RDW 14.6 % (11.6-15.6); WHITE BLOOD COUNT 9.4 K/mm3 (4.0-10.0)
[2023-12-12 17:43] LABS: INR 0.92 (0.83-1.09); PROTHROMBIN TIME (PATIENT) 10.4 SEC (9.7-13.0)
[2023-12-12 17:46] LABS: ACTIVATED PTT 36.4 SECONDS (25.2-36.5)
[2023-12-12 17:56] LABS: POTASSIUM 4.2 mmol/L (3.5-5.1)
[2023-12-12 17:58] LABS: ALBUMIN 4.7 g/dl (3.4-5.0); CALCIUM 10.4 mg/dL (8.5-10.1)
[2023-12-12 18:01] LABS: CREATININE 1.1 mg/dL (0.55-1.3)
[2023-12-12 18:03] LABS: BILIRUBIN,TOTAL 0.6 mg/dL (0.2-1); TOT PROT 8.2 g/dl (6.4-8.2)
[2023-12-12] MEDS ORDERED: chlordiazePOXIDE HCL 25 MG CAPSULE ONE ×2 (18:18→22:08)
[2023-12-12] MEDS: chlordiazePOXIDE HCL 25 MG CAPSULE PO ONE (18:26)
[2023-12-12] MEDS: SODIUM CHLORIDE 1,000 ML IV SCH (21:57)
[2023-12-12] MEDS ORDERED: amLODIPine BESYLATE 5 MG TABLET (FP) ONE (22:08)
[2023-12-12] MEDS ORDERED: ATORVASTATIN CA 10 MG TABLET (FP) ONE (22:08)
[2023-12-12] MEDS: FOLIC ACID INJECTION - 1 MG, THIAMINE HCL 100 MG, MULTIVIT INJECTION ADULT 10 ML in SOD... IVPB ONE (22:17)
[2023-12-12] MEDS: ATORVASTATIN CA 10 MG TABLET (FP) PO SCH (22:17)
[2023-12-12 22:18] VITALS: RESP 18
[2023-12-12] MEDS: amLODIPine BESYLATE 5 MG TABLET (FP) PO SCH (22:18)
[2023-12-12] MEDS: DARUNAVIR 800 MG/COBICISTAT 150MG TABLET PO SCH (22:18)
[2023-12-12] MEDS: DOLUTEGRAVIR SODIUM 50 MG TABLET (NON-FORMULARY) PO SCH (22:18)
[2023-12-12] MEDS: chlordiazePOXIDE HCL 25 MG CAPSULE PO SCH (22:28)
[2023-12-12] MEDS: ONDANSETRON 4 MG/2 ML VIAL IVPUSH PRN (22:58)
[2023-12-13 00:33] VITALS: BMI 27.2
[2023-12-13 07:43] LABS: HEMATOCRIT 38.6 % (32.4-45.2); HEMOGLOBIN 12.7 GM/dL (10.7-15.3); MCH 31.2 pg (25.7-33.7); MCHC 32.9 g/dl (32.0-36.0); MEAN CELL VOLUME 94.9 fl (80-96); MEAN PLT VOLUME 8.4 fl (7.5-11.1); PLATELET COUNT 163 10^3/uL (134-434); RBC 4.07 M/mm3 (3.60-5.2); RDW 14.2 % (11.6-15.6); WHITE BLOOD COUNT 6.7 K/mm3 (4.0-10.0)
[2023-12-13 07:55] LABS: POTASSIUM 3.6 mmol/L (3.5-5.1)
[2023-12-13 07:59] LABS: COCAINE, UR NEGATIVE (NEGATIVE); METHADONE, UR NEGATIVE (NEGATIVE); PHENCYCLIDINE,URINE NEGATIVE (NEGATIVE); URINE AMPHETAMINES NEGATIVE (NEGATIVE); URINE BARBITURATES NEGATIVE (NEGATIVE)
[2023-12-13 08:00] LABS: BLOOD UREA NITROGEN 16.4 mg/dL (7-18)
[2023-12-13 08:04] LABS: BILIRUBIN,TOTAL 0.5 mg/dL (0.2-1)
[2023-12-13 08:05] LABS: CREATININE 0.8 mg/dL (0.55-1.3)
[2023-12-13 08:09] LABS: OPIATES, URI NEGATIVE (NEGATIVE); URINE BENZODIAZEPINES POSITIVE (NEGATIVE)
[2023-12-13 08:09] LABS: ALBUMIN 3.4 g/dl (3.4-5.0); CALCIUM 8.1 mg/dL (8.5-10.1); TOT PROT 6.1 g/dl (6.4-8.2)
[2023-12-13] MEDS: ENOXAPARIN NA (PORCINE) 40 MG/0.4 ML DISP.SYRIN SQ SCH (09:38)
[2023-12-13] MEDS: MAG HYDROX/AL HYDROX/SIMETH 30 ML UNIT-DOSE CUP PO PRN (09:39)
[2023-12-14] MEDS: chlordiazePOXIDE HCL 25 MG CAPSULE PO SCH (05:34)
[2023-12-14] MEDS: NICOTINE 14 MG/24 HOURS TOPICAL PATCH TD SCH (10:07)
[2023-12-14] MEDS: chlordiazePOXIDE HCL 25 MG CAPSULE PO PRN (22:24)
[2023-12-15] MEDS ORDERED: chlordiazePOXIDE HCL 10 MG CAPSULE PO PRN
[2023-12-15] MEDS: chlordiazePOXIDE HCL 10 MG CAPSULE PO SCH (05:07)
[2023-12-15 10:15] VITALS: BP 140/88; PULSE 82; TEMP 98.8
[2023-12-16] MEDS ORDERED: chlordiazePOXIDE HCL 10 MG CAPSULE PO SCH (05:00)
[2023-12-17] MEDS ORDERED: chlordiazePOXIDE HCL 10 MG CAPSULE PO ONE (05:00)
== END 2023-12-15 10:24 | disposition home or self-care (01) | DRG 897 ==
LOC: JER 17:01 → JERBED 19:49 → OBSVTOIN 20:52 → J5S 22:41
PROVIDERS: ADMIT Internal Medicine; ATTEND Internal Medicine
DX: F10.239 Alcohol dependence with withdrawal, unspecified (principal); R11.2 Nausea with vomiting, unspecified; E78.5 Hyperlipidemia, unspecified; Z21 Asymptomatic human immunodeficiency virus [HIV] infection status; I10 Essential (primary) hypertension; E86.0 Dehydration; E83.52 Hypercalcemia
CPT/HCPCS: 36415; 70450-TC; 71045-TC-FY; 80053; 80307; 82962; 83605; 83690; 84484; 85025; 85027; 85610; 85730; 86359; 86360; 87536; 93005; 93010; 99285-25; G0378